=== PATIENT | male | born 1985 | race Caucasian/White ===

== ENCOUNTER 2021-05-17 18:51 | Emergency (ER) | payer SELFPAY ==
[2021-05-17 19:00] VITALS: BP 135/79; PULSE 88; RESP 16; TEMP 37.1; O2SAT 98; BMI 30.7
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
[2021-05-17 19:33] LABS: Microscopic, Urine URINE MICROSCOPIC (MICROSCOPIC)
[2021-05-17 19:36] LABS: Basophils # 0.1 K/mm3 (0-0.2); Basophils % 1.2 % (0.1-2.0); Eosinophils # 0.3 K/mm3 (0.0-0.4); Eosinophils % 3.6 % (0.1-12.0); Hematocrit 44.2 % (42.0-52.0); Hemoglobin 14.6 g/dL (14.1-18.0); Lymphocytes # 2.5 K/mm3 (0.7-4.5); Lymphocytes % 33.8 % (10-50); Mean Corpuscular HGB Conc 33.1 g/dL (31.8-35.4); Mean Corpuscular Volume 96.9 fl (80-94); Mean Platelet Volume 8.8 fl (7.4-10.4); Monocytes # 0.4 K/mm3 (0.1-1.0); Monocytes % 5.1 % (1.7-9.3); Neutrophils # 4.1 K/mm3 (1.8-7.8); Neutrophils % 56.3 % (37.0-80.0); Platelet Count 295 K/mm3 (142-424); Red Blood Count 4.57 M/mm3 (4.60-6.20); White Blood Count 7.3 K/mm3 (4.8-10.8)
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
[2021-05-17 19:46] LABS: Alanine Aminotransferase 16 U/L (12-78); Albumin Level 4.4 g/dl (3.5-5.0); Albumin/Globulin Ratio 1.5 (1.1-1.8); Alkaline Phosphatase 74 U/L (38-126); Anion Gap 5.6 mEq/L (5-15); Aspartate Amino Transferase 34 U/L (17-59); Bilirubin,Total 0.5 mg/dl (0.2-1.3); Blood Urea Nitrogen 9 mg/dl (9-20); Carbon Dioxide 33 mmol/L (22.0-30.0); Chloride 101 mmol/L (98-107); Creatinine Clearance Estimated 206 mL/min (50-200); Estimated Glomerular Filt Rate 128 ml/min (>60); GFR (African American) 154 ML/MIN (>60); Glucose 96 mg/dl (74-100); Lipase 38 U/L (23-300); Potassium 3.6 mmoL/L (3.5-5.1); Sodium 136 mmol/L (136-145); Total Protein,Serum 7.4 g/dl (6.3-8.2)
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
[2021-05-17 19:50] LABS: Appearance,Urine CLEAR (Clear); Bilirubin,Urine Negative (Negative); Blood, Urine Negative (Negative); Color,Urine YELLOW (Yellow); Glucose,Urine (UA) Negative (Negative); Ketones,Urine Negative (Negative); Leukocyte Esterase,Urine Negative (Negative); Nitrate,Urine Negative (Negative); PH,Urine 6.5 (5.0-8.5); Protein,Urine Negative (Negative); Specific Gravity, Urine 1.025 (1.005-1.030); Urobilinogen,Urine 0.2 EU/dl (0.2)
[2021-05-17 20:22] LABS: Bacteria,Urine Trace /lpf
[2021-05-17 20:36] VITALS: BP 145/85; PULSE 75; RESP 20; TEMP 36.6; O2SAT 98
== END 2021-05-17 20:42 | disposition home or self-care (01) ==
PROVIDERS: Emergency Provider Emergency Medicine; PCP Nurse Practitioner Family
DX: S13.4XXA Sprain of ligaments of cervical spine, initial encounter (principal); V47.0XXA Car driver injured in collision with fixed or stationary object in nontraffic accident, initial encounter; Y92.488 Other paved roadways as the place of occurrence of the external cause
CPT/HCPCS: 70450; 70486; 72125; 74177; 80053; 81001; 83690; 85025; 96365; 96375; 99282; J2405; Q9967

== ENCOUNTER 2023-07-30 15:13 | Inpatient (IN) | payer BC, SELFPAY ==
[2023-07-30] VITALS (7 sets, daily range): BP systolic 100–132; BP diastolic 57–73; PULSE 75–97; RESP 16–21; TEMP 36.6–36.8; O2SAT 91–96; BMI 31.4; BMI 35.9
--- NOTE | 2023-07-30 15:52 | ED_ITS ---
Discharge Plan Prescriptions Prescriptions: No Action buprenorphine-naloxone 8-2 mg film See Rx Instructions .ROUTE .COMPLEX Rx Instructions: see rx Referrals Follow up/Referrals: Nilsa Cordero [Primary Care Provider] - See instructions Clinical Impressions Clinical Impression: Hypoxia, Chest pain Discharge ED Provider: Marty Medel [facility] HPI General Stated complaint: oxygen is low, been exposed to Covid Time Seen by Provider: 07/30/23 15:52 History of Present Illness Provider Complaint: His states that the patient has had right sided chest pain, cough, and low o2 sat at home for the past several days. He has a history of substance abuse. He states that he has not had any drugs for the past 3 days. He has been exposed to covid-19 in his home by his having it. Related Data Home Medications Medication Instructions Recorded Confirmed buprenorphine 8 mg-naloxone 2 mg See Rx Instructions .Route .COMPLEX 07/30/23 07/30/23 sublingual film Allergies Allergy/AdvReac Type Severity Reaction Status Date / Time No Known Allergies Allergy Verified 07/30/23 16:03 [facility] Disclaimer: The information contained in this section may have been updated after the patient was seen, as this information can be updated by other users. Social History Smoking Status: Former smoker alcohol intake: former current occupational status: unemployed Travel in the last 8 weeks: None ROS Obtained: Yes All systems reviewed & no additional complaints except as documented Constitutional Constitutional: Denies chills and Denies fever(s) Eyes Eyes: Denies eye discharge ENT Ears, Nose, Mouth, and Throat: Reports as per HPI Cardiovascular Cardiovascular: Reports chest pain Respiratory Respiratory: Reports shortness of breath, Reports chest congestion, Reports cough and Reports stridor Gastrointestinal Gastrointestingal: Denies nausea or vomiting Musculoskeletal Musculoskeletal: Reports system reviewed and no additional complaints, except as documented and Denies arthralgias Integumentary/Breasts Skin/Breast: Denies rash Neurologic Neurologic: Denies paresthesias Physical Exam General General appearance: appears intoxicated Head Head exam: atraumatic, normocephalic and normal inspection Eye Eye exam: Present normal appearance, PERRL and EOMI ENT ENT exam: Present normal exam, normal oropharynx, mucous membranes moist, TM's normal bilaterally and normal external ear exam Neck Neck exam: Present normal inspection, full ROM and trachea midline; Absent meningismus or lymphadenopathy Chest Chest inspection: Present normal inspection and symmetric chest wall rise; Absent tenderness Respiratory Respiratory exam: Present normal lung sounds bilaterally and wheezes; Absent respiratory distress Cardiovascular Cardiovascular exam: Present regular rate and normal rhythm; Absent JVD Abdominal Exam Abdominal exam: Present soft and normal bowel sounds; Absent distention, tenderness or guarding Extremities Exam Extremities exam: Present normal inspection, full ROM and normal capillary refill; Absent calf tenderness Back Exam Back exam: Present normal inspection; Absent tenderness Neurological Exam Neurological exam: Present alert and oriented X3 Psychiatric Psychiatric exam: Present normal affect and normal mood Skin Skin exam: Present warm, dry, intact and normal color Lymphatic Lymphatic Findings: no adenopathy Medical Decision Making Medical Records Medical records reviewed: No I reviewed the patient's medical records. Christiano Inquiry Pt receiving controlled substance: No Medical Decision Narrative: He was transferred to the ER due to his low oxygen saturation, right sided chest pain, and altered mental status despite claims of not having any intoxicating substance in the past 3 days.
--- NOTE | 2023-07-30 15:56 | XR_ITS ---
FINAL REPORT CLINICAL HISTORY: pain FINDINGS: TWO-VIEW CHEST The heart size is normal. The mediastinum is normal. There are bibasilar pulmonary opacities consistent with pneumonia, right greater than left. There is no pneumothorax. IMPRESSION: Bilateral pneumonia, right greater than left. Reviewed, Interpreted and Dictated by Wilmer Dickson III, MD Transcribed by Angeles Askew Authenticated and [facility]
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
[2023-07-30 16:11] LABS: UTC Strep Screen (Rapid) Negative (Negative)
[2023-07-30 16:12] LABS: UTC Influenza A Antigen Negative (Negative); UTC Influenza B Antigen Negative (Negative)
--- NOTE | 2023-07-30 16:12 | ECG_ITS ---
APPROVED REPORT Exam: Resting ECG HR:92 bpm ECG Measurements Heart Rate 92 AXES WY 145 P 58 QRSd 98 QRS 73 QT 342 T 43 QTc 392 Conclusion SINUS RHYTHM NORMAL ECG Electronically signed by : SHAHNAZ HERNANDEZ, 07/30/2023 20:35:20
--- NOTE | 2023-07-30 16:15 | PC.NURSE ---
Dr. Bowling at [facility] for pt eval
--- NOTE | 2023-07-30 16:15 | ED_ITS ---
Discharge Plan Disposition Patient Disposition: Admitted Clinical Impressions Clinical Impression: Sepsis due to pneumonia, Acute hypoxic respiratory failure, Polysubstance abuse Discharge ED Provider: Cyn Bowling General Adult HPI General Chief complaint: Shortness of Breath/Dyspnea Stated complaint: oxygen is low, been exposed to Covid Time Seen by Provider: 07/30/23 15:52 Mode of Arrival: Ambulatory Source of Information: Patient Limitations: No Limitations Description of Symptoms (Recalled from ER Triage Doc. by RN): Pt's symptoms are shortness of breath, blood when he blows his nose, GALLOWAY, fever, and pain in chest left side. He has been exposed to covid and flu. History of Present Illness HPI narrative: This patient is a 38-year-old male with a history of IV drug use presenting with concern for several days of shortness of breath, cough, congestion, bloody nasal discharge, and hemoptysis. He notes that he has had full COVID and flu exposure, so he thought maybe he had an upper respiratory infection. He also complains that he is having pain on the right side of his chest, which he thinks is from coughing and pulling a muscle. He notes he has had fevers and chills as well as left lower extremity edema as well. He denies any abdominal pain, nausea, vomiting, changes in bowel movements, rashes, lesions, or other concerns. He denies any history of blood clots or clotting disorders. He also denies any history of endocarditis. Patient initially went to [facility], and I received report from the [facility] provider Marty who advised that the patient presented with an O2 saturation of 85% on room air. Given this, he sent him over for further evaluation. Related Data Home Medications Medication Instructions Recorded Confirmed buprenorphine 8 mg-naloxone 2 mg See Rx Instructions .Route .COMPLEX 07/30/23 07/30/23 sublingual film Allergies Allergy/AdvReac Type Severity Reaction Status Date / Time No Known Allergies Allergy Verified 07/30/23 16:03 [facility] Disclaimer: The information contained in this section may have been updated after the patient was seen, as this information can be updated by other users. Social History Smoking Status: Former smoker alcohol intake: former current occupational status: unemployed Travel in the last 8 weeks: None ROS Obtained: Yes All systems reviewed & no additional complaints except as documented Physical Exam General General appearance: alert, in no apparent distress and obese Comment: Nontoxic-appearing Head Head exam: atraumatic and normocephalic Eye Eye exam: Present normal appearance, PERRL, EOMI and miosis ENT ENT exam: Present normal exam, normal oropharynx, mucous membranes moist and normal external ear exam Neck Neck exam: Present normal inspection, full ROM and trachea midline; Absent tenderness Chest Chest inspection: Present normal inspection and symmetric chest wall rise; Absent tenderness Respiratory Respiratory exam: Present other (Rhonchi diminished breath sounds in the right lower lung base. Hypoxic requiring 3 L nasal cannula to maintain an oxygen saturation above 90%.); Absent respiratory distress, wheezes, stridor or accessory muscle use Cardiovascular Cardiovascular exam: Present normal rhythm and tachycardia Abdominal Exam Abdominal exam: Present soft; Absent distention, tenderness or guarding Extremities Exam Extremities exam: Present full ROM, normal capillary refill and edema (Bilateral lower extremity edema, left greater than right); Absent tenderness Back Exam Back exam: Present normal inspection and full ROM; Absent tenderness Neurological Exam Neurological exam: Present alert, oriented X3, CN II-XII intact and normal gait; Absent motor sensory deficit Psychiatric Psychiatric exam: Present normal affect and normal mood Skin Skin exam: Present warm, dry and other (No obvious rashes or lesions, such as [place] spots, osler nodes, or splinter hemorrhages.) Medical Decision Making Medical Records Medical records reviewed: Yes I reviewed the patient's medical records. Christiano Inquiry Pt receiving controlled substance: No Vital Signs: 07/30/23 15:45 07/30/23 16:11 07/30/23 19:00 Temperature 98.2 F 98.1 F Temperature Source Oral Oral Pulse Rate 86 Pulse Rate [Right Radial] 97 H 94 H Respiratory Rate 18 21 Blood Pressure 107/57 L Blood Pressure [Right Arm] 100/60 L 115/67 Blood Pressure Mean 67 Blood Pressure Mean [Right Arm] 73 83 Blood Pressure Source [Right Arm] Automatic Cuff Automatic Cuff Blood Pressure Position [Right Arm] Sitting Sitting 02 Sat by Pulse Oximetry 91 L 93 L 96 Oxygen Delivery Method Nasal Cannula Nasal Cannula Oxygen Flow Rate (LPM) 3 3 3 07/30/23 19:17 Temperature 98.1 F Temperature Source Oral Pulse Rate 86 Pulse Rate [Right Radial] Respiratory Rate 21 Blood Pressure 107/57 L Blood Pressure [Right Arm] Blood Pressure Mean Blood Pressure Mean [Right Arm] Blood Pressure Source [Right Arm] Blood Pressure Position [Right Arm] 02 Sat by Pulse Oximetry Oxygen Delivery Method Nasal Cannula Oxygen Flow Rate (LPM) 3 Lab Data Lab results reviewed: Yes I reviewed the patient's lab results. Lab Results 07/30/23 16:10: Influenza Type A Ag Negative, Influenza Type B Ag Negative, Strep Scn Rapid Clinic Negative 07/30/23 16:30: WBC 16.2 H, RBC 3.54 L, Hgb 11.5 L, Hct 35.3 L, MCV 99.7 H, MCH 32.5 H, MCHC 32.6, RDW 12.6, Plt Count 314, MPV 8.4, Neut % (Auto) 82.6 H, Lymph % (Auto) 13.6, Crisp % (Auto) 2.8, Eos % (Auto) 0.4, Baso % (Auto) 0.5, Neut # (Auto) 13.4 H, Lymph # (Auto) 2.2, Crisp # (Auto) 0.5, Eos # (Auto) 0.1, Baso # (Auto) 0.1, Total Counted 100, Neutrophils % (Manual) 81 H, Lymphocytes % (Manual) 18, Monocytes % (Manual) 1 L, Platelet Estimate Normal, Stomatocytes 1+, ESR > 140 H, PT 11.4, INR 1.06, APTT 33.3 H, Sodium 134 L, Potassium 3.4 L, Chloride 96 L, Carbon Dioxide 37 H, Anion Gap 4.4 L, BUN 9, Creatinine 1.10, Estimated Creat Clear 135, Estimated GFR 75, Est GFR ( Amer) 91, Glucose 119 H, Calcium 8.2 L, Total Bilirubin 0.6, AST 77 H, ALT 23, Alkaline Phosphatase 110, Troponin I 0.03, C-Reactive Protein 277.8 H, NT-Pro-B Natriuret Pep 788 H, Total Protein 6.9, Albumin 3.4 L, Globulin 3.5 H, Albumin/Globulin Ratio 1.0 L 07/30/23 16:41: VBG pH 7.35, VBG pCO2 59.3 H, VBG pO2 86.4 H, VBG HCO3 31.6 H, V BG Total CO2 33.5 H, VBG O2 Saturation 96.8 H, VBG Base Excess 5.9 H, VBG Lactic Acid 1.0 07/30/23 17:30: Urine Color [place], Urine Appearance Clear, Urine pH 6.0, Ur Specific [place] 1.020, Urine Protein 2+, Urine Glucose (UA) Negative, Urine Ketones Negative, Urine Blood Negative, Urine Nitrate Negative, Urine Bilirubin 1+ A, Urine Urobilinogen 1.0, Ur Leukocyte Esterase Negative, Urine RBC None, Urine WBC None, Ur Squamous Epith Cells Occasional, Urine Bacteria None, Urine Opiates Screen Negative, Urine Methadone Screen Negative, Ur Barbituates Screen Negative, Ur Phencyclidine Scrn Negative, Ur Amphetamines Screen Negative, U Benzodiazepines Scrn Positive H, Urine Cocaine Screen Positive H, U Marijuana (THC) Screen Negative 07/30/23 16:30 07/30/23 16:30 Orders (Tests/Meds): ED MEDICATIONS Generic Name Dose Route Start Last Admin Trade Name Freq PRN Reason Stop Dose Admin Buprenorphine/Naloxone 1 each 07/30/23 21:00 Buprenorphine/Naloxone 8mg/2mg Odt SL 08/29/23 20:59 BID [facility] Enoxaparin Sodium 40 mg 07/31/23 09:00 Enoxaparin 40mg/0.4ml Syringe SQ 08/30/23 08:59 DAILY GOSIA Vancomycin HCl 2,250 mg/ 250 mls @ 125 mls/hr 07/30/23 18:00 Sodium Chloride IV 07/30/23 19:59 ONCE ONE Piperacillin Sod/Tazobactam 50 mls @ 100 mls/hr 07/30/23 23:30 Sod 3.375 gm/ Sodium Chloride IV 08/09/23 23:29 Q6H [facility] Miscellaneous 1 each 07/30/23 18:00 Vancomycin Consult Request NOTAPPLIC 08/29/23 17:59 CONSULT PHARMACY [facility] Nicotine 21 mg 07/30/23 18:12 Nicotine 21mg/24hr Patch TD 08/29/23 18:11 DAILYP PRN Nicotine Cravings Discontinued Medications Generic Name Dose Route Start Last Admin Trade Name Freq PRN Reason Stop Dose Admin Albuterol/Ipratropium 3 ml 07/30/23 15:56 07/30/23 16:10 Ipratropium/Albuterol 3 Ml Neb IH 07/30/23 15:57 Not Given ONCE ONE Lactated Ringer's 1,000 mls @ 999 mls/hr 07/30/23 16:23 07/30/23 16:38 Lactated Ringer's 1000 Ml Bag IV 07/30/23 17:23 999 mls/hr .Q1H1M ONE Administration Lactated Ringer's 1,000 mls @ 999 mls/hr 07/30/23 17:08 Lactated Ringer's 1000 Ml Bag IV 07/30/23 18:08 .Q1H1M ONE Piperacillin Sod/Tazobactam 50 mls @ 100 mls/hr 07/30/23 17:48 07/30/23 17:55 Sod 3.375 gm/ Sodium Chloride IV 07/30/23 18:17 100 mls/hr ONCE ONE Administration Iopamidol 75 ml 07/30/23 17:28 07/30/23 17:30 Iopamidol-370 (76%);100ml Bottle IV 07/30/23 17:29 75 ml ONCE ONE Administration Nicotine 21 mg 07/30/23 17:47 07/30/23 17:55 Nicotine 21mg/24hr Patch TD 07/30/23 17:48 21 mg ONCE ONE Administration Sodium Chloride 40 ml 07/30/23 17:28 07/30/23 17:30 0.9 % Sodium Chloride 50 Ml Vial IV 07/30/23 17:29 40 ml ONCE ONE Administration Sodium Chloride 10 ml 07/30/23 17:28 07/30/23 17:30 Sodium Chloride 0.9% 10ml Syr (Rad Only) IV 07/30/23 17:29 10 ml ONCE ONE Administration ORDERS Category Date Time Status CT angio chest PE protocol Stat Cat Scan 07/30/23 16:07 Completed Pulmonology Consult [Consult to Pulmonology] [CONS] Cons 07/30/23 18:12 Active Routine Chest XR 2 view (NOT portable) [XR chest 2V] Stat Exams 07/30/23 15:56 Completed POCUS Point of Care (ER Only) Stat Exams 07/30/23 16:08 Completed Activated Partial Thrombo Time Stat Lab 07/30/23 16:30 Completed Brain Natriuretic Peptide Stat Lab 07/30/23 16:30 Completed CRP [C-Reactive Protein] Stat Lab 07/30/23 16:30 Completed Complete Blood Count Auto Diff AMLAB Lab 07/31/23 06:00 Ordered Complete Blood Count Auto Diff Stat Lab 07/30/23 16:30 Completed Comprehensive Metabolic Panel AMLAB Lab 07/31/23 06:00 Ordered Comprehensive Metabolic Panel Stat Lab 07/30/23 16:30 Completed Covid-19 Nasal PCR ([facility]) Routine Lab 07/30/23 16:24 Received Drug Screen,Urine Stat Lab 07/30/23 17:30 Completed Erythrocyte Sedimentation Rate Stat Lab 07/30/23 16:30 Completed Magnesium AMLAB Lab 07/31/23 06:00 Ordered Prothrombin Time INR Stat Lab 07/30/23 16:30 Completed Troponin I Q3H Lab 07/30/23 19:15 Ordered Troponin I Q3H Lab 07/30/23 22:15 Ordered Troponin I Stat Lab 07/30/23 16:30 Completed Urinalysis and Microscopic Stat Lab 07/30/23 17:30 Completed Blood Culture Stat Micro 07/30/23 16:30 Received Strep Screen Confirmation Stat Micro 07/30/23 16:10 Received Venous Blood Gas Stat RT 07/30/23 16:41 Completed ECG Data Tracing #1: I reviewed this ECG and interpreted as documented below: Sinus rhythm with a ventricular rate of [address] elevations concerning for ischemia. Normal axis and intervals. ECG initial impression date: 07/30/23 ECG initial impression time: 16:13 Medical Decision Narrative: In summary, this patient is a 38-year-old male presenting to the Emergency Department for evaluation of cough, congestion, chest pain, shortness of breath, hemoptysis, and low oxygen reading at [facility]. Differential diagnoses considered include but are not limited to PE, bronchitis, pneumonia, respiratory failure, endocarditis, ACS. Ruling out the most morbid conditions drove assessment. It should be noted patient's history includes IV drug use which is not at goal therapy. This complicates all aspects of care by increasing patient's risk for morbidity. On exam, the patient is nontoxic-appearing. He is slightly tachycardic and is hypoxic requiring supplemental oxygen with 3 L nasal cannula. Workup included CBC, CMP, troponin, ESR, CRP, VBG, lactic acid, BNP, PT, PTT, viral swab, blood cultures, CT PE protocol, and EKG. EKG is reassuring. I independently interpreted chest x-ray obtained at [facility] prior to transfer of the patient over to us and noted that he has dense consolidation in his right lower lobe. I independently interpreted CT scan prior to the radiologist read and noted bilateral multifocal pneumonia, worse on the right. No obvious large PE. Please see their read for final interpretation. Labs were obtained that demonstrated leukocytosis, elevated inflammatory markers, and CO2 retention. On multiple subsequent reassessments, the patient is resting comfortably with reassuring vital signs on cardiac telemetry. He does not frequently, likely due to the fact that he is under the influence of substances. He did admit that he took benzodiazepines today. UDS is positive for benzodiazepines as well as cocaine. He maintains his oxygen saturation without difficulty and is arousable to voice. He was given a sepsis equivalent bolus of IV fluids at 2 L of IV fluids based on his ideal body weight. He was given IV vancomycin and Zosyn given sepsis in the setting of pneumonia. At this time, I feel he would benefit from admission for continued monitoring. He is very high risk with his history of substance use and I am highly concerned for sepsis. Bedside ultrasound was obtained that did not demonstrate any definitive vegetations on his cardiac valves, however cannot exclude endocarditis at this time. I had an interactive discussion with the hospitalist, Dr. Basurto, who admitted the patient for further evaluation and management. Procedures Limited Ultrasound Findings:: Limited cardiac ultrasound Indication: -Chest pain -Shortness of breath Identified cardiac views: [-Cardiac parasternal long axis] [-Cardiac parasternal short axis] [-Cardiac apical four-chamber] [-Cardiac subxiphoid] Findings: -Cardiac activity present -Gross wall motion normal -Pericardial effusion absent -Right heart strain absent Impression: -[From above] Images [were saved] to permanent archive The study [was] technically adequate CPT: 49137 This study was performed by me, and I personally interpreted all images/videos. Based on my clinical judgement, these images were [adequate] and [did not] necessitate further imaging. Critical Care Critical Care Time Critical Care Time: No
--- NOTE | 2023-07-30 16:15 | [facility].EDGENADL ---
Discharge Plan Prescriptions Prescriptions: No Action buprenorphine-naloxone 8-2 mg film See Rx Instructions .ROUTE .COMPLEX Rx Instructions: see rx Referrals Follow up/Referrals: Nilsa Cordero [Primary Care Provider] - See instructions Discharge ED Provider: Marty Medel General Adult HPI General Stated complaint: oxygen is low, been exposed to Covid Time Seen by Provider: 07/30/23 15:52 Mode of Arrival: Ambulatory Source of Information: Patient Limitations: No Limitations Description of Symptoms (Recalled from ER Triage Doc. by RN): Pt's symptoms are shortness of breath, blood when he blows his nose, GALLOWAY, fever, and pain in chest left side. He has been exposed to covid and flu. Related Data Home Medications Medication Instructions Recorded Confirmed buprenorphine 8 mg-naloxone 2 mg See Rx Instructions .Route .COMPLEX 07/30/23 07/30/23 sublingual film Allergies Allergy/AdvReac Type Severity Reaction Status Date / Time No Known Allergies Allergy Verified 07/30/23 16:03 [facility] Disclaimer: The information contained in this section may have been updated after the patient was seen, as this information can be updated by other users. Medical Decision Making Vital Signs: 07/30/23 15:45 Temperature 98.2 F Temperature Source Oral Pulse Rate [Right Radial] 97 H Respiratory Rate 18 Blood Pressure [Right Arm] 100/60 L Blood Pressure Mean [Right Arm] 73 Blood Pressure Source [Right Arm] Automatic Cuff Blood Pressure Position [Right Arm] Sitting 02 Sat by Pulse Oximetry 91 L Oxygen Delivery Method Nasal Cannula Oxygen Flow Rate (LPM) 3 Lab Data Lab Results 07/30/23 16:10: Influenza Type A Ag Negative, Influenza Type B Ag Negative, Strep Scn Rapid Clinic Negative Orders (Tests/Meds): ED MEDICATIONS Discontinued Medications Generic Name Dose Route Start Last Admin Trade Name Freq PRN Reason Stop Dose Admin Albuterol/Ipratropium 3 ml 07/30/23 15:56 07/30/23 16:10 Ipratropium/Albuterol 3 Ml Neb IH 07/30/23 15:57 Not Given ONCE ONE ORDERS Category Date Time Status CT angio chest PE protocol Stat Cat Scan 07/30/23 16:07 Ordered Chest XR 2 view (NOT portable) [XR chest 2V] Stat Exams 07/30/23 15:56 Taken POCUS Point of Care (ER Only) Stat Exams 07/30/23 16:08 Ordered Activated Partial Thrombo Time Stat Lab 07/30/23 16:07 Ordered Brain Natriuretic Peptide Stat Lab 07/30/23 16:07 Ordered Complete Blood Count Auto Diff Stat Lab 07/30/23 16:07 Ordered Comprehensive Metabolic Panel Stat Lab 07/30/23 16:07 Ordered Covid-19 Nasal PCR ([facility]) Routine Lab 07/30/23 16:07 Ordered Drug Screen,Urine Stat Lab 07/30/23 16:08 Ordered Prothrombin Time INR Stat Lab 07/30/23 16:07 Ordered Troponin I Q3H Lab 07/30/23 19:15 Ordered Troponin I Q3H Lab 07/30/23 22:15 Ordered Troponin I Stat Lab 07/30/23 16:07 Ordered Urinalysis and Microscopic Stat Lab 07/30/23 16:08 Ordered Blood Culture Stat Micro 07/30/23 16:13 Ordered Strep Screen Confirmation Stat Micro 07/30/23 16:10 Received Venous Blood Gas Stat RT 07/30/23 16:07 Ordered
[2023-07-30] MEDS: LACTATED RINGERS 1000ML 1,000 ML 999 ML IV ×2 (16:38→20:47)
--- NOTE | 2023-07-30 16:41 | PC.NURSE ---
respiratory (NAIDA) aware of green top in lab for vbg order
--- NOTE | 2023-07-30 16:42 | PC.NURSE ---
lab called for 2 nd set of blood culture draw due to difficult stick
[2023-07-30 16:46] LABS: VBG Base Excess 5.9 mmol/L (-2.4-2.3); VBG HCO3 31.6 mmol/L (23-30); VBG Oxygen Saturation 96.8 % (50-70); VBG PCO2 59.3 mmol/L (35-51); VBG PH 7.35 mmol/L (7.31-7.41); VBG PO2 86.4 mmol/L (28-40); VBG Total CO2 33.5 mmol/L (23-27)
--- NOTE | 2023-07-30 16:54 | PC.NURSE ---
lab at collecting blood
[2023-07-30 16:58] LABS: Basophils # 0.1 K/mm3 (0-0.2); Basophils % 0.5 % (0.1-2.0); Eosinophils # 0.1 K/mm3 (0.0-0.4); Eosinophils % 0.4 % (0.1-12.0); Hematocrit 35.3 % (42.0-52.0); Hemoglobin 11.5 g/dL (14.1-18.0); Lymphocytes # 2.2 K/mm3 (0.7-4.5); Lymphocytes % 13.6 % (10-50); Mean Corpuscular HGB Conc 32.6 g/dL (31.8-35.4); Mean Corpuscular Hemoglobin 32.5 pg (27.0-31.2); Mean Corpuscular Volume 99.7 fl (80-94); Mean Platelet Volume 8.4 fl (7.4-10.4); Monocytes # 0.5 K/mm3 (0.1-1.0); Monocytes % 2.8 % (1.7-9.3); Neutrophils # 13.4 K/mm3 (1.8-7.8); Neutrophils % 82.6 % (37.0-80.0); Platelet Count 314 K/mm3 (142-424); Red Blood Count 3.54 M/mm3 (4.60-6.20); Red Cell Distribution Width 12.6 % (11.5-17.5); White Blood Count 16.2 K/mm3 (4.8-10.8)
[2023-07-30 16:59] LABS: Chloride 96 mmol/L (98-107); Potassium 3.4 mmoL/L (3.5-5.1); Sodium 134 mmol/L (136-145)
[2023-07-30 17:01] LABS: Blood Urea Nitrogen 9 mg/dl (9-20); Creatinine Clearance Estimated 135 mL/min (50-200); Estimated Glomerular Filt Rate 75 ml/min (>60); GFR (African American) 91 ML/MIN (>60); MANUAL DIFFERENTIAL MANUAL DIFFERENTIAL (MANUAL DIFF)
[2023-07-30 17:02] LABS: Alanine Aminotransferase 23 U/L (12-78); Albumin Level 3.4 g/dl (3.5-5.0); Alkaline Phosphatase 110 U/L (38-126); Anion Gap 4.4 mEq/L (5-15); Aspartate Amino Transferase 77 U/L (17-59); Bilirubin,Total 0.6 mg/dl (0.2-1.3); Calcium 8.2 mg/dl (8.4-10.2); Carbon Dioxide 37 mmol/L (22.0-30.0); Globulin 3.5 g/dL (1.3-3.2); Glucose 119 mg/dl (74-100); Total Protein,Serum 6.9 g/dl (6.3-8.2)
[2023-07-30 17:06] LABS: Activated Partial Thrombo Time 33.3 seconds (22.8-30.6); INR 1.06 (0.9-1.1); Prothrombin Time 11.4 seconds (10.1-12.5)
[2023-07-30 17:10] LABS: C-Reactive Protein 277.8 mg/L (0-4)
[2023-07-30 17:11] LABS: NT Pro Brain Natriuretic Pep. 788 pg/mL (0-125)
[2023-07-30 17:13] LABS: Troponin I 0.03 ng/ml (0.00-0.034)
[2023-07-30 17:29] LABS: Lymphocytes % 18 % (10-50); Monocytes % 1 % (2-9); Neutrophils % 81 % (42-76); Platelet Estimate Normal; Stomatocytes 1+; Total Cells Counted 100
[2023-07-30 17:30] LABS: Erythrocyte Sedimentation Rate > 140 mm/hr (0-15)
[2023-07-30] MEDS: SODIUM CHLORIDE 0.9% 10ML SYR (RAD ONLY) 10 ML IV (17:30)
[2023-07-30] MEDS: IOPAMIDOL-370 (76%);100ML BOTTLE 75 ML IV (17:30)
[2023-07-30] MEDS: 0.9 % SODIUM CHLORIDE 50 ML VIAL 40 ML IV (17:30)
--- NOTE | 2023-07-30 17:31 | PC.NURSE ---
Pt returned to room from RAD
[2023-07-30 17:44] LABS: Microscopic, Urine URINE MICROSCOPIC (MICROSCOPIC)
[2023-07-30 17:53] LABS: Appearance,Urine CLEAR (Clear); Blood, Urine Negative (Negative); Color,Urine ORANGE (Yellow); Glucose,Urine (UA) Negative (Negative); Ketones,Urine Negative (Negative); Leukocyte Esterase,Urine Negative (Negative); Nitrate,Urine Negative (Negative); Protein,Urine 2+ (Negative)
[2023-07-30] MEDS: PIPERACILLIN/TAZO 3.375 GM in 0.9 % SODIUM CHLORIDE 50 ML IV (17:55)
[2023-07-30] MEDS: NICOTINE 21MG/24HR PATCH 21 MG TD (17:55)
[2023-07-30 18:10] LABS: Barbiturates Screen,Urine Negative ng/ml (<200); Benzodiazepines Screen,Urine Positive ng/ml (<200)
[2023-07-30 18:11] LABS: Amphetamine/Metha Screen,Urine Negative ng/ml (<1000)
[2023-07-30 18:12] LABS: Bilirubin,Urine 1+ (Negative); Cocaine Screen,Urine Positive ng/ml (<300); Methadone Screen,Urine Negative ng/ml (<300)
[2023-07-30 18:13] LABS: Cannabinoid Screen,Urine Negative ng/ml (<50)
[2023-07-30 18:14] LABS: Opiate Screen,Urine Negative ng/ml (<300); Phencyclidine Screen,Urine Negative ng/ml (<25)
--- NOTE | 2023-07-30 18:14 | PC.NURSE ---
House notified of need for bed.
[2023-07-30 18:23] LABS: Squamous Epithelial Cell,Urine Occasional #/hpf (0-5)
--- NOTE | 2023-07-30 18:33 | PC.NURSE ---
Report called to [facility] aT
--- NOTE | 2023-07-30 19:20 | PC.NURSE ---
Patient arrived to floor via stretcher from ED at 19:17.
--- NOTE | 2023-07-30 19:45 | EXP.HP ---
History of Present Illness *Admission Date: 07/30/23 *Reason for visit:: SOB and CP *History of present illness: This is a 38-year-old male with no apparent no medical history, other than IV drug use, presented to ED with concern for several days of shortness of breath, cough, congestion, bloody nasal discharge, and hemoptysis. Patient stated went to a music concert last Saturday and had something hard for fun he snorted it. he does not know what it was. He also notes that he has had full COVID and flu exposure, so he thought maybe he had an upper respiratory infection. He also complains that he is having pain on the right side of his chest, which he thinks is from coughing and pulling a muscle. He notes he has had fevers and chills as well as left lower extremity edema as well. He denies any abdominal pain, nausea, vomiting, changes in bowel movements, rashes, lesions, or other concerns. He denies any history of blood clots or clotting disorders. He also denies any history of endocarditis. Admitted for treatment and management [facility] Disclaimer: The information contained in this section may have been updated after the patient was seen, as this information can be updated by other users. Social History (Updated 07/31/23 @ 07:58 by Marty Basurto MD) Smoking Status: Former smoker alcohol intake: former substance use type: marijuana, crack/cocaine and IV drugs current occupational status: unemployed Travel in the last 8 weeks: None Review of Systems Review of Systems Review of systems:: pertinent systems reviewed and negative unless documented below *Neurologic Neurologic: Denies paresthesias Meds Home Medications and Allergies Home Medications Medication Instructions Recorded Confirmed Type buprenorphine 8 mg-naloxone 2 mg 1 film sublingual BID 07/30/23 07/31/23 History sublingual film New Prescriptions to Start Prescriptions: Allergies Allergy/AdvReac Type Severity Reaction Status Date / Time No Known Allergies Allergy Verified 07/30/23 16:03 Exam Data for Last 24 hours Vital signs and Labs for Last 24 Hours: Temp Pulse Resp BP Pulse Ox O2 Del Method O2 Flow Rate 98.1 F 86 21 107/57 L 96 Nasal Cannula 3 07/30/23 19:17 07/30/23 19:17 07/30/23 19:17 07/30/23 19:17 07/30/23 19:00 07/30/23 19:17 07/30/23 19:17 Laboratory Results - last 24 hr 07/30/23 16:10: Influenza Type A Ag Negative, Influenza Type B Ag Negative, Strep Scn Rapid Clinic Negative 07/30/23 16:30: WBC 16.2 H, RBC 3.54 L, Hgb 11.5 L, Hct 35.3 L, MCV 99.7 H, MCH 32.5 H, MCHC 32.6, RDW 12.6, Plt Count 314, MPV 8.4, Neut % (Auto) 82.6 H, Lymph % (Auto) 13.6, [place] % (Auto) 2.8, Eos % (Auto) 0.4, Baso % (Auto) 0.5, Neut # (Auto) 13.4 H, Lymph # (Auto) 2.2, [place] # (Auto) 0.5, Eos # (Auto) 0.1, Baso # (Auto) 0.1, Total Counted 100, Neutrophils % (Manual) 81 H, Lymphocytes % (Manual) 18, Monocytes % (Manual) 1 L, Platelet Estimate Normal, Stomatocytes 1+, ESR > 140 H, PT 11.4, INR 1.06, APTT 33.3 H, Sodium 134 L, Potassium 3.4 L, Chloride 96 L, Carbon Dioxide 37 H, Anion Gap 4.4 L, BUN 9, Creatinine 1.10, Estimated Creat Clear 135, Estimated GFR 75, Est GFR ( Amer) 91, Glucose 119 H, Calcium 8.2 L, Total Bilirubin 0.6, AST 77 H, ALT 23, Alkaline Phosphatase 110, Troponin I 0.03, C-Reactive Protein 277.8 H, NT-Pro-B Natriuret Pep 788 H, Total Protein 6.9, Albumin 3.4 L, Globulin 3.5 H, Albumin/Globulin Ratio 1.0 L 07/30/23 16:41: VBG pH 7.35, VBG pCO2 59.3 H, VBG pO2 86.4 H, VBG HCO3 31.6 H, VBG Total CO2 33.5 H, VBG O2 Saturation 96.8 H, VBG Base Excess 5.9 H, VBG Lactic Acid 1.0 07/30/23 17:30: Urine Color [place], Urine Appearance Clear, Urine pH 6.0, Ur Specific [place] 1.020, Urine Protein 2+, Urine Glucose (UA) Negative, Urine Ketones Negative, Urine Blood Negative, Urine Nitrate Negative, Urine Bilirubin 1+ A, Urine Urobilinogen 1.0, Ur Leukocyte Esterase Negative, Urine RBC None, Urine WBC None, Ur Squamous Epith Cells Occasional, Urine Bacteria None, Urine Opiates Screen Negative, Urine Methadone Screen Negative, Ur Barbituates Screen Negative, Ur Phencyclidine Scrn Negative, Ur Amphetamines Screen Negative, U Benzodiazepines Scrn Positive H, Urine Cocaine Screen Positive H, U Marijuana (THC) Screen Negative I & O for Last 24 hours: Intake & Output 07/27/23 07/28/23 07/29/23 07/30/23 23:59 23:59 23:59 23:59 Weight 113.398 kg Constitutional Constitutional: mild distress, cooperative and somnolent *Routine HEENT Exam Head: Present normocephalic and atraumatic Eye: Present EOMI, PERRL and normal accommodation ENT: Present mucous membranes dry *Routine Neck Exam Neck: Present supple, full ROM and trachea midline *Routine Respiratory Exam Respiratory: Present CTA bilaterally, crackles, diminished air movement and normal respiratory effort *Routine Cardiovascular Exam Cardiovascular: Present RRR, Normal S1, Normal S2 and tachycardia *Routine Abdominal Exam Abdominal: Present soft and normoactive bowel sounds; Absent tenderness, distended or mass *Routine Rectal Exam Rectal:: deferred *Routine Genitalia Exam Genitalia:: deferred *Routine Extremities Exam Extremities: Present full ROM and pulses intact; Absent cyanosis, clubbing or edema *Routine Skin Exam Skin: Present petechiae; Absent cyanosis, erythema or rash *Routine Neurological Exam Neurological: Present alert, oriented X3, moving all extremities and normal speech Routine Psychiatric Exam Psychiatric: Present good insight H&P: Result Imaging and Cardiology EKG: Status: image reviewed by me, Preliminary report and final report CT scan - chest: Status: image reviewed by me, Preliminary report and final report Chest x-ray: Status: image reviewed by me, Preliminary report and final report Assessment and Plan *Assessment and plan (1) Acute hypoxic respiratory failure: Status: Acute Category: Medical Code(s): J96.01 - Acute respiratory failure with hypoxia (2) Sepsis due to pneumonia: Status: Acute Category: Medical Code(s): J18.9 - Pneumonia, unspecified organism; A41.9 - Sepsis, unspecified organism (3) Drug-induced pneumonitis: Status: Acute Category: Medical Code(s): J98.4 - Other disorders of lung; T50.905A - Adverse effect of unspecified drugs, medicaments and biological substances, initial encounter (4) Polysubstance abuse: Status: Acute Category: Medical Code(s): F19.10 - Other psychoactive substance abuse, uncomplicated (5) Hypokalemia: Status: Acute Category: Medical Code(s): E87.6 - Hypokalemia (6) Elevated brain natriuretic peptide (BNP) level: Status: Acute Category: Medical Code(s): R79.89 - Other specified abnormal findings of blood chemistry Plan 38-year-old male with no apparent no medical history, other than IV drug use, presented to ED with concern for several days of shortness of breath, cough, congestion, bloody nasal discharge, and hemoptysis. Patient stated went to a music concert last Saturday and had something hard for fun he snorted it. on arrival patient presented hypoxic, tachycardic met sepsis criteria, went into fluid resuscitation. started on broad antibiotioc. CT of chest obtained. imaging reviewed. consistent with multifocal pneumonia. labs are remarkable for leukocytocys, electrolytes disturbances. elevated BNP. discussed with ED for admission. Plan as follow: -Sepsis with Acute hypoxic respiratory failure secondary to acquired pneumoania. to r/o pnemonitis secondary to drug aspiration. polysubstance abuse: Admit patient. start continuous monitoring for sepsis and organ dysfuntion pulmonology consult monitor for O2 sat. currently 3L NC. wean off \Decadron 10mg IV given. Continue with 6mg PO daily. May decrease dose as saturation improve started on vanco and zoxyn. Pending culture respiratory to assist with care. repeat labs in the morning. Watch for renal function Cont IV sepsis bolus. switch to maintenance after. expressed interest for detox program. CM/social services manager consult to assist with D/c plan -Hypokalemia: replace K+ PO. [facility]tes imabalances. cardiac monitoring BNP elevated: Obtain ECHO in the morning to rule out myocarditis. Lovenox for dvt ppx. On protonix Full code,. Plan discussed with patient and family at bedside. they agreed. Rounded on patient after nurse practitioner. Personally examined and interviewed patient. Agree with exam findings and care plan as documented.
[2023-07-30 20:15] LABS: Troponin I 0.02 ng/ml (0.00-0.034)
[2023-07-30] MEDS: VANCOMYCIN HCL 2,250 MG in 0.9 % SODIUM CHLORIDE 250 ML 125 MG IV (20:47)
[2023-07-30] MEDS: VANCOMYCIN CONSULT REQUEST 1 EACH NOTAPPLIC ×2 (20:48→21:49)
[2023-07-30] MEDS: DEXAMETHASONE 4MG/ML 1ML VIAL 8 MG IV (21:49)
[2023-07-30] MEDS: POTASSIUM CHLORIDE 20MEQ TAB 40 MEQ PO (21:49)
[2023-07-30] MEDS: PIPERCILLIN/TAZO 3.375 GM in 0.9 % SODIUM CHLORIDE 50 ML IV (23:12)
[2023-07-30 23:26] LABS: Troponin I 0.01 ng/ml (0.00-0.034)
[2023-07-31] VITALS: BP 108/57; PULSE 78; RESP 17; TEMP 36.6; O2SAT 96
--- NOTE | 2023-07-31 00:08 | PC.NURSE ---
RESPIRATORY NOTE PT IS ON 4L NC RA NOT ADVISED AT THIS TIME.
[2023-07-31 04:00] VITALS: BP 113/60; PULSE 80; PULSE 81; RESP 17; TEMP 36.7; O2SAT 95; BMI 33.3
[2023-07-31] MEDS: VANCOMYCIN HCL 1,000 MG in 0.9 % SODIUM CHLORIDE 250 ML 125 MG IV (04:04)
--- NOTE | 2023-07-31 04:58 | PC.NURSE ---
Since arriving from the ER that patient has been in and out of alertness. The patient is at times hard to arouse but would wake up with stimulation and yelling his name. When awake the patient knows his name and where he is at but at times forgets why he is here. Patient RR has remained above 15 and O2 has remained above 90 while asleep. with exertion the patient does drop substantially to the 70s and does take awhile for the patient to rebound. patient is currently on 4L NC. The highest he has been this shift 5LNC and titrated to keep patient above 90%. During admission patient and family stated that he took a Bar earlier in the day before coming in but has not taken anything else excepted his suboxone. Patient would not say the last time he use any other recreational drugs. Family has remained at bedside.
--- NOTE | 2023-07-31 07:16 | HMH.PHAINT1 ---
Pharmacy Intervention Comments: Home medication list verified via outside pharmacy and patient.
[2023-07-31 07:18] LABS: Basophils % 0.1 % (0.1-2.0); Hematocrit 37.9 % (42.0-52.0); Lymphocytes # 0.9 K/mm3 (0.7-4.5); Lymphocytes % 5.1 % (10-50); Mean Corpuscular HGB Conc 31.6 g/dL (31.8-35.4); Mean Corpuscular Hemoglobin 32.5 pg (27.0-31.2); Mean Corpuscular Volume 102.8 fl (80-94); Mean Platelet Volume 8.7 fl (7.4-10.4); Monocytes # 0.2 K/mm3 (0.1-1.0); Monocytes % 1.5 % (1.7-9.3); Neutrophils # 15.5 K/mm3 (1.8-7.8); Neutrophils % 93.3 % (37.0-80.0); Platelet Count 331 K/mm3 (142-424); Red Blood Count 3.68 M/mm3 (4.60-6.20); Red Cell Distribution Width 12.7 % (11.5-17.5); White Blood Count 16.6 K/mm3 (4.8-10.8)
[2023-07-31 07:20] LABS: MANUAL DIFFERENTIAL MANUAL DIFFERENTIAL (MANUAL DIFF)
--- NOTE | 2023-07-31 07:43 | EXP.PHA.CONS ---
Pharmacy Consult Date: 07/31/23 Time: 07:44 Referring provider: DR URIOSTEGUI Reason for Consult:: VANCOMYCIN DOSING CONSULT Allergies Allergy/AdvReac Type Severity Reaction Status Date / Time No Known Allergies Allergy Verified 07/30/23 16:03 Home Medications Medication Instructions Recorded Confirmed Type buprenorphine 8 mg-naloxone 2 mg 1 film sublingual BID 07/30/23 07/31/23 History sublingual film New Prescriptions to Start Prescriptions: Height: 1.78 m Weight: 105.778 kg Laboratory Results:: Laboratory Results - last 24 hr 07/30/23 16:10: Influenza Type A Ag Negative, Influenza Type B Ag Negative, Strep Scn Rapid Clinic Negative 07/30/23 16:30: WBC 16.2 H, RBC 3.54 L, Hgb 11.5 L, Hct 35.3 L, MCV 99.7 H, MCH 32.5 H, MCHC 32.6, RDW 12.6, Plt Count 314, MPV 8.4, Neut % (Auto) 82.6 H, Lymph % (Auto) 13.6, [place] % (Auto) 2.8, Eos % (Auto) 0.4, Baso % (Auto) 0.5, Neut # (Auto) 13.4 H, Lymph # (Auto) 2.2, [place] # (Auto) 0.5, Eos # (Auto) 0.1, Baso # (Auto) 0.1, Total Counted 100, Neutrophils % (Manual) 81 H, Lymphocytes % (Manual) 18, Monocytes % (Manual) 1 L, Platelet Estimate Normal, Stomatocytes 1+, ESR > 140 H, PT 11.4, INR 1.06, APTT 33.3 H, Sodium 134 L, Potassium 3.4 L, Chloride 96 L, Carbon Dioxide 37 H, Anion Gap 4.4 L, BUN 9, Creatinine 1.10, Estimated Creat Clear 135, Estimated GFR 75, Est GFR ( Amer) 91, Glucose 119 H, Calcium 8.2 L, Total Bilirubin 0.6, AST 77 H, ALT 23, Alkaline Phosphatase 110, Troponin I 0.03, C-Reactive Protein 277.8 H, NT-Pro-B Natriuret Pep 788 H, Total Protein 6.9, Albumin 3.4 L, Globulin 3.5 H, Albumin/Globulin Ratio 1.0 L 07/30/23 16:41: VBG pH 7.35, VBG pCO2 59.3 H, VBG pO2 86.4 H, VBG HCO3 31.6 H, VBG Total CO2 33.5 H, VBG O2 Saturation 96.8 H, VBG Base Excess 5.9 H, VBG Lactic Acid 1.0 07/30/23 17:30: Urine Color [place], Urine Appearance Clear, Urine pH 6.0, Ur Specific [place] 1.020, Urine Protein 2+, Urine Glucose (UA) Negative, Urine Ketones Negative, Urine Blood Negative, Urine Nitrate Negative, Urine Bilirubin 1+ A, Urine Urobilinogen 1.0, Ur Leukocyte Esterase Negative, Urine RBC None, Urine WBC None, Ur Squamous Epith Cells Occasional, Urine Bacteria None, Urine Opiates Screen Negative, Urine Methadone Screen Negative, Ur Barbituates Screen Negative, Ur Phencyclidine Scrn Negative, Ur Amphetamines Screen Negative, U Benzodiazepines Scrn Positive H, Urine Cocaine Screen Positive H, U Marijuana (THC) Screen Negative 07/30/23 19:10: Troponin I 0.02 07/30/23 22:40: Troponin I 0.01 07/31/23 06:50: WBC 16.6 H, RBC 3.68 L, Hgb 12.0 L, Hct 37.9 L, MCV 102.8 H, MCH 32.5 H, MCHC 31.6 L, RDW 12.7, Plt Count 331, MPV 8.7, Neut % (Auto) 93.3 H, Lymph % (Auto) 5.1 L, [place] % (Auto) 1.5 L, Eos % (Auto) 0.0 L, Baso % (Auto) 0.1, Neut # (Auto) 15.5 H, Lymph # (Auto) 0.9, [place] # (Auto) 0.2, Eos # (Auto) 0.0, Baso # (Auto) 0.0 Assessment and Plan Assessment and plan all Dx Assessment and Plan for all problems:: Pharmacokinetic dosing service Objective: Age: 38 yo Serum creatinine: 1.1 mg/dL Height: 70.1 Inches Weight (kg): 105.778 Diagnosis: SEPSIS/PNEUMONIA Assessment: IBW (kg): 73.23 Dosing wt(kg): 105.778 Estimated Creatinine clearance (ml/min): 94.3 CRCL method: Cockcroft and Gault using ibw(default). Drug selected: Vancomycin Loading dose (mg): 2250 MG Vd (liters): 74.0 (factor used: 0.7 L/kg) [place] (hr-1): 0.083 Half life (hrs): 8.35 CLvanco=?? 6.142 L/hr Recommended dose: 1750 mg Interval: 12 hrs Infusion time (hrs): 2.0 Predicted peak (mcg/mL): 34.6 Predicted trough (mcg/mL): 15.09 Total body weight is being used for vancomycin dosing. Recommendations: Give Vancomycin 1750 mg q 12 hrs with an expected Cpeak of 34.6 mcg/ml and an expected Ctrough of 15.09 mcg/ml AUC 0-24 /QUENTIN Data: QUENTIN 0.5 mcg/mL:?? AUC/QUENTIN:? 1139.7 QUENTIN 1.0 mcg/mL:?? AUC/QUENTIN:? 569.8 --------- QUENTIN 1.5 mcg/mL:?? AUC/QUENTIN:? 379.9 QUENTIN 2.0 mcg/mL:?? AUC/QUENTIN:? 284.9 Thank you for the consult
[2023-07-31 08:00] VITALS: BP 124/68; PULSE 100; PULSE 105; RESP 22; TEMP 36.7; O2SAT 93
[2023-07-31 08:59] LABS: Alanine Aminotransferase 24 U/L (12-78); Albumin Level 3.4 g/dl (3.5-5.0); Albumin/Globulin Ratio 0.9 (1.1-1.8); Alkaline Phosphatase 120 U/L (38-126); Anion Gap 8.2 mEq/L (5-15); Aspartate Amino Transferase 62 U/L (17-59); Bilirubin,Total 0.4 mg/dl (0.2-1.3); Blood Urea Nitrogen 7 mg/dl (9-20); Calcium 8.6 mg/dl (8.4-10.2); Carbon Dioxide 32 mmol/L (22.0-30.0); Chloride 103 mmol/L (98-107); Creatinine Clearance Estimated 214 mL/min (50-200); Estimated Glomerular Filt Rate 126 ml/min (>60); GFR (African American) 153 ML/MIN (>60); Globulin 3.7 g/dL (1.3-3.2); Glucose 153 mg/dl (74-100); Magnesium 2.4 mg/dl (1.6-2.3); Potassium 4.2 mmoL/L (3.5-5.1); Sodium 139 mmol/L (136-145); Total Protein,Serum 7.1 g/dl (6.3-8.2)
[2023-07-31] MEDS: DEXAMETHASONE 4MG TABLET 6 MG PO (09:07)
[2023-07-31] MEDS: ENOXAPARIN 40MG/0.4ML SYRINGE 40 MG SQ (09:07)
[2023-07-31 10:20] LABS: Lymphocytes % 8 % (10-50); Monocytes % 1 % (2-9); Neutrophils % 91 % (42-76); Platelet Estimate Normal; RBC Morphology Normal; Total Cells Counted 100
[2023-07-31 12:00] VITALS: BP 125/69; PULSE 89; PULSE 90; RESP 21; TEMP 36.4; O2SAT 97
[2023-07-31 13:14] LABS: Lactate Dehydrogenase 603 U/L (313-618)
--- NOTE | 2023-07-31 14:57 | PC.NURSE ---
Patient expressed to Dr. Basurto that he may want to leave AMA. RN went in to ask if patient wanted to leave AMA, patient stated that he thought he could stay and had been talked into it by his . Patient asked if he could go down to smoke RN informed patient of policy and that [facility] is a non-smoking facility. Patient was offered a nicotine patch but refused. Patient wanted to leave AMA at this point. Patient signed paperwork and left at 1411. Charge nurse, , service manager and cook house laborer aware.
--- NOTE | 2023-07-31 19:14 | P.DS_ITS ---
General Admission date:: 07/30/23 Discharge date: 07/31/23 HPI HPI HPI: This is a 38-year-old male with no apparent no medical history, other than IV drug use, presented to ED with concern for several days of shortness of breath, cough, congestion, bloody nasal discharge, and hemoptysis. Patient stated went to a music concert last Saturday and had something hard for fun he snorted it. he does not know what it was. He also notes that he has had full COVID and flu exposure, so he thought maybe he had an upper respiratory infection. He also complains that he is having pain on the right side of his chest, which he thinks is from coughing and pulling a muscle. He notes he has had fevers and chills as well as left lower extremity edema as well. He denies any abdominal pain, nausea, vomiting, changes in bowel movements, rashes, lesions, or other concerns. He denies any history of blood clots or clotting disorders. He also denies any history of endocarditis. Admitted for treatment and management Hospital Course Hospital Course Hospital Course: 38-year-old male with no apparent no medical history, other than IV drug use, presented to ED with concern for several days of shortness of breath, cough, congestion, bloody nasal discharge, and hemoptysis. Patient stated went to a music concert last Saturday and had something hard for fun he snorted it. on arrival patient presented hypoxic, tachycardic met sepsis criteria, went into fluid resuscitation. started on broad antibiotioc. CT of chest obtained. imaging reviewed. consistent with multifocal pneumonia. labs are remarkable for leukocytocys, electrolytes disturbances. elevated BNP. discussed with ED for admission. Patient was admitted and started on antibiotics. On 4 L oxygen. After much discussion, patient stated he was not staying. Said he had things he needed to take care of. Said his just left him the day before. Would not explain further as to why he felt the need to go. Extensive discussion about the danger and him leaving and the threat to life and limb if he left given his 4 L oxygen requirement, diffuse pneumonia/airspace disease on chest imaging. Patient was adamant he was not staying. Did not discharge on oxygen or antibiotics as he was leaving AMA and at this time it is my opinion he necessitates IV antibiotics and I do not see an appropriate oral regimen to de- escalate to at this point. Made that point very clear to patient. Stated understanding and continued to state that he was leaving because he felt better and did not want to be in the hospital. Diagnoses: -Sepsis with Acute hypoxic respiratory failure secondary to acquired pneumoania. to r/o pnemonitis secondary to drug aspiration. polysubstance abuse: Exam Data for Last 24 hours Vital signs and Labs for Last 24 Hours: Temp Pulse Resp BP Pulse Ox O2 Del Method O2 Flow Rate 97.6 F 89 21 125/69 97 Nasal Cannula 4 07/31/23 12:00 07/31/23 12:00 07/31/23 12:00 07/31/23 12:00 07/31/23 12:00 07/31/23 12:00 07/31/23 12:00 Laboratory Results - last 24 hr 07/30/23 19:10: Troponin I 0.02 07/30/23 22:40: Troponin I 0.01 07/31/23 06:50: WBC 16.6 H, RBC 3.68 L, Hgb 12.0 L, Hct 37.9 L, MCV 102.8 H, MCH 32.5 H, MCHC 31.6 L, RDW 12.7, Plt Count 331, MPV 8.7, Neut % (Auto) 93.3 H, Lymph % (Auto) 5.1 L, [place] % (Auto) 1.5 L, Eos % (Auto) 0.0 L, Baso % (Auto) 0.1, Neut # (Auto) 15.5 H, Lymph # (Auto) 0.9, [place] # (Auto) 0.2, Eos # (Auto) 0.0, Baso # (Auto) 0.0, Total Counted 100, Neutrophils % (Manual) 91 H, Lymphocytes % (Manual) 8 L, Monocytes % (Manual) 1 L, Platelet Estimate Normal, RBC Morphology Normal, Sodium 139, Potassium 4.2 D, Chloride 103, Carbon Dioxide 32 H, Anion Gap 8.2, BUN 7 L, Creatinine 0.70 D, Estimated Creat Clear 214, Estimated GFR 126, Est GFR ( Amer) 153 D, Glucose 153 H D, Calcium 8.6, Magnesium 2.4 H, Total Bilirubin 0.4, AST 62 H, ALT 24, Alkaline Phosphatase 120, Lactate Dehydrogenase 603, Total Protein 7.1, Albumin 3.4 L, Globulin 3.7 H, Albumin/Globulin Ratio 0.9 L I & O for Last 24 hours: Intake & Output 07/28/23 07/29/23 07/30/23 07/31/23 23:59 23:59 23:59 23:59 Intake Total 815 / 815 Output Total 0 / 0 0 / 0 Balance 0 / 0 815 / 815 Weight 113.398 kg 105.778 kg Microbiology Reports for the Last 24 Hours: Microbiology 07/30/23 16:24 Nasopharyngeal Coronavirus COVID-19 PCR - Final Constitutional Constitutional: no acute distress, obese, chronically ill appearing, disheveled and agitated *Routine HEENT Exam Head: Present normocephalic and atraumatic Eye: Present EOMI ENT: Present mucous membranes moist *Routine Neck Exam Neck: Present supple *Routine Respiratory Exam Respiratory: Present crackles; Absent respiratory distress, rhonchi or wheezes *Routine Cardiovascular Exam Cardiovascular: Present RRR *Routine Abdominal Exam Abdominal: Present soft *Routine Rectal Exam Patient deferred: visual exam *Routine Exam Patient deferred: penile exam *Routine Extremities Exam Extremities: Absent cyanosis *Routine Skin Exam Skin: Present intact *Routine Neurological Exam Neurological: Present alert, oriented X3 and moving all extremities; Absent altered mental status Routine Psychiatric Exam Psychiatric: Present normal affect; Absent suicidal ideation, cooperative, good insight or good judgment Results Data Completed and Pending Labs on day of discharge: Labs from last 24 hours 07/31/23 07/30/23 07/30/23 06:50 22:40 19:10 WBC 16.6 H RBC 3.68 L Hgb 12.0 L Hct 37.9 L MCV 102.8 H MCH 32.5 H MCHC 31.6 L RDW 12.7 Plt Count 331 MPV 8.7 Neut % (Auto) 93.3 H Lymph % (Auto) 5.1 L [place] % (Auto) 1.5 L Eos % (Auto) 0.0 L Baso % (Auto) 0.1 Neut # (Auto) 15.5 H Lymph # (Auto) 0.9 [place] # (Auto) 0.2 Eos # (Auto) 0.0 Baso # (Auto) 0.0 Total Counted 100 Neutrophils % (Manual) 91 H Lymphocytes % (Manual) 8 L Monocytes % (Manual) 1 L Platelet Estimate Normal RBC Morphology Normal Sodium 139 Potassium 4.2 D Chloride 103 Carbon Dioxide 32 H Anion Gap 8.2 BUN 7 L Creatinine 0.70 D Estimated Creat Clear 214 Estimated GFR 126 Est GFR ( Amer) 153 D Glucose 153 H D Calcium 8.6 Magnesium 2.4 H Total Bilirubin 0.4 AST 62 H ALT 24 Alkaline Phosphatase 120 Lactate Dehydrogenase 603 Troponin I 0.01 0.02 Total Protein 7.1 Albumin 3.4 L Globulin 3.7 H Albumin/Globulin Ratio 0.9 L DS: Diagnosis Discharge Diagnosis (1) Acute hypoxic respiratory failure: Status: Acute Code(s): J96.01 - Acute respiratory failure with hypoxia (2) Sepsis due to pneumonia: Status: Acute Code(s): J18.9 - Pneumonia, unspecified organism; A41.9 - Sepsis, unspecified organism (3) Drug-induced pneumonitis: Status: Acute Code(s): J98.4 - Other disorders of lung; T50.905A - Adverse effect of unspecified drugs, medicaments and biological substances, initial encounter (4) Polysubstance abuse: Status: Acute Code(s): F19.10 - Other psychoactive substance abuse, uncomplicated (5) Hypokalemia: Status: Acute Code(s): E87.6 - Hypokalemia (6) Elevated brain natriuretic peptide (BNP) level: Status: Acute Code(s): R79.89 - Other specified abnormal findings of blood chemistry Meds Home Medications and Allergies Home Medications Medication Instructions Recorded Confirmed Type buprenorphine 8 mg-naloxone 2 mg 1 film sublingual BID 07/30/23 07/31/23 History sublingual film New Prescriptions to Start Prescriptions: Allergies Allergy/AdvReac Type Severity Reaction Status Date / Time No Known Allergies Allergy Verified 07/30/23 16:03 Discharge Plan Disposition Patient Disposition: Left Against Medical Advice Providers Admit Provider: Marty Basurto Attending Provider: Marty Basurto
--- NOTE | 2023-07-31 21:08 | CA_ITS ---
APPROVED REPORT EXAM: Comprehensive 2D, Doppler, and color-flow Echocardiogram Backup Sawyer: Bela Jamil CRT Ht: 5 ft 10 in Wt: 250lbs BSA: 2.29 BP: 107/57 mmHg Indications: sepsis, drug use, pneumonia,fever 2D Dimensions LA Volume 93.40 mL LA Volume Index 39.70 mL/m2 (M/F) 16-34 M-Mode Dimensions RVDd 2.97 cm (0.9-2.6) LA Diam 4.53 cm (1.9-4.0) LVDd 5.51 cm (3.5-5.7) LVDs 3.54 cm (3.5-5.7) IVSd 1.44 cm (0.6-1.1) PWd 0.97 cm (0.6-1.1) EF (Teich) 64.70% FS 35.80% EDV (Teich) 148.00 mL TAPSE 3.24 (<1.7) ESV (Teich) 52.30 mL LV Diastology E Decel Time 143 (160-240 msec) E/A Ratio 1.04 MED A' 15.70 cm/s LAT A' 18.80 cm/s Aortic Valve AO Peak GR. 9.10 mmHg Mitral Valve MV E Max Sam. 110.0 (40-130 cm/s) MV A Velocity 106.0 (40-130 cm/s) E/A Ratio 1.04 MV PHT 42.0 ms Pulmonary Valve PV Peak Velocity 159.0 (50-150 cm/s) Tricuspid Valve TR P. Velocity 343.00 cm/s RAP Estimate 10.00 mmHg RVSP 57.10 mmHg Left Ventricle The left ventricle is normal size. The left ventricular systolic function is normal. The left ventricular ejection fraction is within the normal range. There is normal left ventricular wall thickness. There is normal LV segmental wall motion. The left ventricular diastolic function is normal. LVEF is 55%. Right Ventricle The right ventricle is mildly dilated. Right ventricle is mildly hypokinetic. Atria Left atrium is mildly dilated. The right atrium size is normal. There is no Doppler evidence of interatrial shunt. Aortic Valve The aortic valve is normal in structure. The aortic valve is trileaflet. Trace aortic regurgitation. There is no aortic valvular stenosis. Mitral Valve The mitral valve is normal in structure. No evidence of mitral valve stenosis. There is no mitral valve regurgitation noted. Tricuspid Valve The tricuspid valve leaflets are thin and pliable. Mild tricuspid regurgitation. There is insufficient TR jet to estimate RVSP. Pulmonic Valve The pulmonary valve is normal in structure. Trace pulmonic regurgitation. Great Vessels The aortic root is normal in size. The ascending aorta is normal in size. IVC is normal in size and collapses >50% with inspiration. Pericardium There is no pericardial effusion. Other Information Study Quality: Fair Conclusion Normal LV systolic function. Mild RV dilation with mild reduction in RV function. Mild TR. No clear evidence of vegetations or mobile echodensities on the valves (as evaluated in the setting of recent history of fevers). If there is clinical concern for endocarditis (history of fever), note that this TTE does not entirely rule out valvular vegetations. If deemed clinically necessary, further evaluation with LAUREL may be suggested. Electronically signed by : Sho Kraft MD 08/01/2023 12:59:05
--- NOTE | 2023-08-01 07:28 | EXP.ACUTE.PN ---
Subjective *Date: 08/01/23 *Time: 07:28 Medical Exam Vital signs and Labs for Last 24 Hours: Vital Signs Temp Pulse Pulse Resp BP Pulse Ox O2 Del Method 07/31/23 12:00 90 07/31/23 12:00 97.6 F 89 21 125/69 97 Nasal Cannula 07/31/23 08:00 Nasal Cannula 07/31/23 08:00 98.0 F 100 H 22 124/68 93 L Nasal Cannula 07/31/23 08:00 105 H O2 Flow Rate 07/31/23 12:00 07/31/23 12:00 4 07/31/23 08:00 07/31/23 08:00 4 07/31/23 08:00 Intake and Output 07/31/23 07/31/23 08/01/23 15:59 23:59 07:59 Intake Total 815 / 815 Output Total 0 / 0 Balance 815 / 815 Intake: Intake, Oral Amount 815 / 815 Output: Output, Urine Amount 0 / 0 Other: Number of Unmeasured Voids 2 Number of Bowel Movements 1 Laboratory Results - last 24 hr 07/31/23 06:50: Total Counted 100, Neutrophils % (Manual) 91 H, Lymphocytes % (Manual) 8 L, Monocytes % (Manual) 1 L, Platelet Estimate Normal, RBC Morphology Normal, Sodium 139, Potassium 4.2 D, Chloride 103, Carbon Dioxide 32 H, Anion Gap 8.2, BUN 7 L, Creatinine 0.70 D, Estimated Creat Clear 214, Estimated GFR 126, Est GFR ( Amer) 153 D, Glucose 153 H D, Calcium 8.6, Magnesium 2.4 H, Total Bilirubin 0.4, AST 62 H, ALT 24, Alkaline Phosphatase 120, Lactate Dehydrogenase 603, Total Protein 7.1, Albumin 3.4 L, Globulin 3.7 H, Albumin/Globulin Ratio 0.9 L I & O for Labs for Last 24 Hours: Intake & Output 07/29/23 07/30/23 07/31/23 08/01/23 23:59 23:59 23:59 23:59 Intake Total 815 / 815 Output Total 0 / 0 0 / 0 Balance 0 / 0 815 / 815 Weight 113.398 kg 105.778 kg Assessment and Plan *Assessment and plan (1) Altered mental status: Status: Acute Category: Medical Code(s): R41.82 - Altered mental status, unspecified (2) Substance abuse: Status: Acute Category: Medical Code(s): F19.10 - Other psychoactive substance abuse, uncomplicated (3) Pneumonia: Status: Acute Category: Medical Code(s): J18.9 - Pneumonia, unspecified organism (4) Respiratory failure: Status: Acute Category: Medical Code(s): J96.90 - Respiratory failure, unspecified, unspecified whether with hypoxia or hypercapnia (5) Scleroderma: Status: Chronic Category: Medical Code(s): M34.9 - Systemic sclerosis, unspecified Plan 38-year-old male with no apparent no medical history, other than IV drug use, presented to ED with concern for several days of shortness of breath, cough, congestion, bloody nasal discharge, and hemoptysis. Patient stated went to a music concert last Saturday and had something hard for fun he snorted it. on arrival patient presented hypoxic, tachycardic met sepsis criteria, went into fluid resuscitation. started on broad antibiotioc. CT of chest obtained last admission with multifocal pneumonia concerning for pneumonitis, pneumonia, inflammation. Continuing antibiotics at this time. Pulm consult today. Continues to require inpatient management. Problems addressed as follows: -Sepsis with Acute hypoxic respiratory failure secondary to acquired pneumoania. to r/o pnemonitis secondary to drug aspiration. polysubstance abuse: Patient readmitted after leaving AMA. Resumed IV antibiotics with Zosyn and vancomycin. Continue supplemental oxygen with goal saturation greater than percent. Currently on 4 L Pulmonology consulted, appreciate their assistance in care. Labs still pending from last admission including RAPHAEL, HIV, sputum and blood cultures kari. Patient frankly altered at this time and unable to give much history. White cell count 16 on presentation. Repeat CBC, CMP, magnesium ordered for the morning Of note, has a history of scleroderma Encephalopathy -Likely toxic due to substance abuse. - Previously expressed interest in detox program. CM/psychiatric social worker consult to assist with D/c plan -Currently on CIWA protocol given agitation and concern for benzodiazepine dependence/addiction/abuse BNP elevated: Echo obtained yesterday. Awaiting formal result to evaluate for possible myocarditis. No complaint of chest pain at this time however difficult to obtain much review of systems from patient Lovenox for dvt ppx. protonix Full code
[2023-08-01 07:33] LABS: HIV Screen 4th Generation wRfx Non Reactive (Non Reactive)
[2023-08-03 12:43] LABS: Antinuclear Antibodies (ANA) Negative
== END 2023-07-31 14:11 | disposition left against medical advice (07) | DRG 177 ==
LOC: UTC 15:42 → ER 16:06 → 2ND 18:34
PROVIDERS: Nurse Practitioner Family; Admitting Provider Internal Medicine Adolescent Medicine; Emergency Provider Emergency Medicine; PCP Nurse Practitioner Family; Visit Provider Internal Medicine Adolescent Medicine
DX: J69.0 Pneumonitis due to inhalation of food and vomit (principal); A41.9 Sepsis, unspecified organism; J96.01 Acute respiratory failure with hypoxia; T50.905A Adverse effect of unspecified drugs, medicaments and biological substances, initial encounter; F19.10 Other psychoactive substance abuse, uncomplicated; E87.6 Hypokalemia; Z87.891 Personal history of nicotine dependence
CPT/HCPCS: 36415; 71046; 71275; 80053; 80307; 81001; 82803; 83615; 83735; 83880; 84484; 85007; 85025; 85610; 85651; 85730; 86038; 86140; 86225; 86235; 86703; 87040; 87635; 87804; 87880; 93005; 93306; 99285; G0432; J2543; J3370; Q9967

== ENCOUNTER 2023-07-31 19:06 | Inpatient (IN) | payer BC, SELFPAY ==
[2023-07-31] VITALS (7 sets, daily range): BP systolic 111–113; BP diastolic 56–65; PULSE 70–78; RESP 16–18; TEMP 36.6–36.8; O2SAT 79–97; BMI 35.9; BMI 73.1; BMI 33.2
--- NOTE | 2023-07-31 19:34 | XR_ITS ---
PROCEDURE INFORMATION: Exam: XR Chest Exam date and time: 07/31/2023 7:33 PM Age: 38 years old Clinical indication: Other: AMS; Additional info: AMS, pneumonia TECHNIQUE: Imaging protocol: Radiologic exam of the chest. Views: 1 view. COMPARISON: 1. CR XR CHEST 2V 07/30/2023 3:[address] ANGIO CHEST PE PROTOCOL 07/30/2023 5:25 PM FINDINGS: Lungs: Bilateral patchy ground-glass opacities with mild right lung base consolidation. Mild pulmonary vascular congestion. Pleural spaces: Normal. No pleural effusion. No pneumothorax. Heart/Mediastinum: Mildly enlarged cardiac silhouette. Bones/joints: Unremarkable. IMPRESSION: Bilateral patchy ground-glass opacities with mild right lung base consolidation has not significantly changed. Findings could be secondary to atypical pneumonia, edema, or hypersensitivity reaction.
--- NOTE | 2023-07-31 20:01 | PC.NURSE ---
Pts reports giving narcan to pt intranasally about 30mins before arriving to ED
--- NOTE | 2023-07-31 20:12 | HMH.EDGENADL ---
Discharge Plan Disposition Patient Disposition: Admitted Clinical Impressions Clinical Impression: Respiratory failure, Pneumonia, Substance abuse, Altered mental status Discharge ED Provider: Cyn Bowling General Adult HPI General Chief complaint: Altered Mental Status Stated complaint: AMS Time Seen by Provider: 07/31/23 19:33 Mode of Arrival: Ambulatory Source of Information: Significant Other Limitations: Altered Mental Status Description of Symptoms (Recalled from ER Triage Doc. by RN): Pt to ED with with AMS starting approx 1-2 hours ago per . Per , pt was on 2nd floor as inpatient today here at [facility] and she had to leave hospital. states when she left hospital, pt signed out AMA. Pt reports i had things to take care of in a certain time frame. states pt has hx of heroin use, but has not used heroin in 7-8 months. reports pt was with his mother today and mother denies seeing him use any illicit drugs. pt denies drug use today. also reports pt used xanax 2 days ago. reports pt was aggressive on their way to ED tonight, reports pt bit her arm and tells me to be careful around pt. Upon initial assessment, pt O2 sats 79%. Pt placed on 4L NC which brought O2 sat to 97%. Pt is disoriented to person, place, and time. PERRLA. Pupils 2mm. History of Present Illness HPI narrative: This patient is a 38-year-old male with a history of polysubstance abuse presenting with concern for altered mental status and shortness of breath. Patient was admitted yesterday after evaluation in the emergency department by myself at which point he was found to have bilateral pneumonia and respiratory failure. Unfortunately, the patient left AGAINST MEDICAL ADVICE earlier this morning. He was requiring 3 L nasal cannula upon medical record review at the time of leaving AGAINST MEDICAL ADVICE. Patient and family deny any substance use since discharge, however patient is somnolent but arouses to voice. He states he feels short of breath but denies other issues. Related Data Home Medications Medication Instructions Recorded Confirmed buprenorphine 8 mg-naloxone 2 mg 1 film sublingual BID 07/30/23 07/31/23 sublingual film Allergies Allergy/AdvReac Type Severity Reaction Status Date / Time No Known Allergies Allergy Verified 07/30/23 16:03 [facility] Disclaimer: The information contained in this section may have been updated after the patient was seen, as this information can be updated by other users. Social History Smoking Status: Current every day smoker alcohol intake: former substance use type: marijuana, crack/cocaine and IV drugs current occupational status: unemployed Travel in the last 8 weeks: None ROS Obtained: Yes All systems reviewed & no additional complaints except as documented Physical Exam General General appearance: obtunded Comment: Somnolent but arouses to voice. Head Head exam: atraumatic and normocephalic Eye Eye exam: Present EOMI and miosis ENT ENT exam: Present normal exam, normal oropharynx, mucous membranes moist and normal external ear exam Neck Neck exam: Present normal inspection, full ROM and trachea midline; Absent tenderness Chest Chest inspection: Present normal inspection and symmetric chest wall rise; Absent tenderness Respiratory Respiratory exam: Present wheezes and other (Coarse bilateral rhonchi. Hypoxic requiring 4 L nasal cannula for supplemental oxygenation); Absent respiratory distress, stridor or accessory muscle use Cardiovascular Cardiovascular exam: Present regular rate and normal rhythm Abdominal Exam Abdominal exam: Present soft; Absent distention, tenderness or guarding Extremities Exam Extremities exam: Present normal inspection, full ROM and normal capillary refill; Absent tenderness or edema Back Exam Back exam: Present normal inspection and full ROM; Absent tenderness Neurological Exam Neurological exam: Present oriented X3, CN II-XII intact and normal gait; Absent motor sensory deficit Expanded Neurological Exam Coma scale eye opening: To voice Coma scale motor response: Obeys commands Coma scale verbal response: Oriented Coma scale total: 14 Psychiatric Psychiatric exam: Present normal affect and normal mood Skin Skin exam: Present warm and dry Medical Decision Making Medical Records Medical records reviewed: Yes I reviewed the patient's medical records. Christiano Inquiry Pt receiving controlled substance: No Vital Signs: 07/31/23 19:31 07/31/23 20:01 Temperature 98.3 F Temperature Source Oral Pulse Rate [Apical] 77 Respiratory Rate 18 Blood Pressure [Right Arm] 113/61 Blood Pressure Mean [Right Arm] 78 Blood Pressure Source [Right Arm] Automatic Cuff Blood Pressure Position [Right Arm] Sitting 02 Sat by Pulse Oximetry 79 L 97 Oxygen Delivery Method Room Air Nasal Cannula Oxygen Flow Rate (LPM) 4 Lab Data Lab results reviewed: Yes I reviewed the patient's lab results. Orders (Tests/Meds): ED MEDICATIONS Generic Name Dose Route Start Last Admin Trade Name Freq PRN Reason Stop Dose Admin Acetaminophen 650 mg 07/31/23 20:18 Acetaminophen 325mg Tab PO 08/30/23 20:17 Q4HP PRN Fever or Mild Pain (1-3) Enoxaparin Sodium 40 mg 07/31/23 20:30 Enoxaparin 40mg/0.4ml Syringe SQ 08/30/23 20:29 DAILY GOSIA Sodium Chloride 1,000 mls @ 50 mls/hr 07/31/23 20:30 Sod Chlor 0.9% 1000ml Bag IV 08/30/23 20:29 .Q20H GOSIA Piperacillin Sod/Tazobactam 100 mls @ 200 mls/hr 07/31/23 20:30 Sod 4.5 gm/ Sodium Chloride IV 08/10/23 20:29 Q6H GOSIA Miscellaneous 1 each 07/31/23 20:30 Vancomycin Consult Request NOTAPPLIC 08/30/23 20:29 CONSULT PHARMACY GOSIA Nicotine 21 mg 07/31/23 20:18 Nicotine 21mg/24hr Patch TD 08/30/23 20:17 DAILYP PRN Nicotine Cravings Pantoprazole Sodium 40 mg 07/31/23 20:30 Pantoprazole 40mg Tablet PO 08/30/23 20:29 DAILY GOSIA ORDERS Category Date Time Status XR chest portable Stat Exams 07/31/23 19:34 Completed Acetaminophen Stat Lab 07/31/23 19:33 Ordered Complete Blood Count Auto Diff AMLAB Lab 08/01/23 06:00 Ordered Complete Blood Count Auto Diff Stat Lab 07/31/23 19:33 Ordered Comprehensive Metabolic Panel AMLAB Lab 08/01/23 06:00 Ordered Comprehensive Metabolic Panel Stat Lab 07/31/23 19:33 Ordered Drug Screen,Urine Stat Lab 07/31/23 19:33 Ordered Ethyl Alcohol Stat Lab 07/31/23 19:34 Ordered Magnesium AMLAB Lab 08/01/23 06:00 Ordered Salicylate Stat Lab 07/31/23 19:33 Ordered Urinalysis and Microscopic Stat Lab 07/31/23 19:33 Ordered Venous Blood Gas Stat RT 07/31/23 19:33 Ordered Medical Decision Narrative: In summary, this patient is a 38-year-old male presenting to the Emergency Department for evaluation of altered mental status and continued shortness of breath after leaving AGAINST MEDICAL ADVICE earlier this morning. He was admitted for respiratory failure in the setting of pneumonia and polysubstance abuse. Upon assessment, the patient is hypoxic requiring 4 L nasal cannula, but he is in no acute distress and vitals are otherwise reassuring. Basic workup including CBC, CMP, VBG, urinalysis, urine drug screen, serum acetaminophen, and serum salicylate were ordered. I had an interactive discussion with the hospitalist who came down at this time and noted that the patient could just be admitted for further evaluation and management because he was just discharged. He requires further treatment of his pneumonia and respiratory failure which she was admitted for. I advised to the patient that he not leave AGAINST MEDICAL ADVICE this time, as it is important that he completes treatment and he is already demonstrated that it is unsafe for him to go home. Patient is agreeable. Patient was admitted in stable condition for further evaluation and management. Critical Care Critical Care Time Critical Care Time: No
--- NOTE | 2023-07-31 20:31 | PC.NURSE ---
called report to lucina gonzalez
--- NOTE | 2023-07-31 20:49 | PC.NURSE ---
Balaji Farrar RN at bedside for US guided IV.
--- NOTE | 2023-07-31 20:49 | PC.NURSE ---
RT notified of green top tube for VBG being in lab
[2023-07-31 20:55] LABS: Lactate Venous 0.9 mmol/L (0.4-2.0); VBG Base Excess 4.6 mmol/L (-2.4-2.3); VBG HCO3 29.5 mmol/L (23-30); VBG Oxygen Saturation 81.5 % (50-70); VBG PO2 42.8 mmol/L (28-40)
[2023-07-31 21:04] LABS: Chloride 102 mmol/L (98-107); Sodium 137 mmol/L (136-145)
[2023-07-31 21:05] LABS: Potassium 4.2 mmoL/L (3.5-5.1)
[2023-07-31 21:07] LABS: Alanine Aminotransferase 26 U/L (12-78); Albumin Level 3.3 g/dl (3.5-5.0); Alkaline Phosphatase 123 U/L (38-126); Anion Gap 4.2 mEq/L (5-15); Aspartate Amino Transferase 59 U/L (17-59); Bilirubin,Total 0.3 mg/dl (0.2-1.3); Blood Urea Nitrogen 11 mg/dl (9-20); Calcium 8.4 mg/dl (8.4-10.2); Carbon Dioxide 35 mmol/L (22.0-30.0); Creatinine Clearance Estimated 268 mL/min (50-200); Estimated Glomerular Filt Rate 151 ml/min (>60); GFR (African American) 182 ML/MIN (>60); Globulin 3.4 g/dL (1.3-3.2); Glucose 125 mg/dl (74-100); Total Protein,Serum 6.7 g/dl (6.3-8.2)
[2023-07-31 21:09] LABS: Acetaminophen < 10 ug/ml (10-30); Salicylate < 1.0 mg/dL (2.0-20.0)
--- NOTE | 2023-07-31 21:09 | PC.NURSE ---
US guided 20G IV inserted to FIONA by MD Bowling.
[2023-07-31 21:15] LABS: Basophils % 0.2 % (0.1-2.0); Hematocrit 33.8 % (42.0-52.0); Hemoglobin 10.8 g/dL (14.1-18.0); Lymphocytes # 1.4 K/mm3 (0.7-4.5); Lymphocytes % 8.6 % (10-50); Mean Corpuscular HGB Conc 32.1 g/dL (31.8-35.4); Mean Corpuscular Hemoglobin 32.2 pg (27.0-31.2); Mean Corpuscular Volume 100.4 fl (80-94); Mean Platelet Volume 8.6 fl (7.4-10.4); Monocytes # 0.5 K/mm3 (0.1-1.0); Monocytes % 2.9 % (1.7-9.3); Neutrophils # 14.5 K/mm3 (1.8-7.8); Neutrophils % 88.3 % (37.0-80.0); Platelet Count 345 K/mm3 (142-424); Red Blood Count 3.37 M/mm3 (4.60-6.20); Red Cell Distribution Width 12.8 % (11.5-17.5); White Blood Count 16.4 K/mm3 (4.8-10.8)
[2023-07-31 21:17] LABS: MANUAL DIFFERENTIAL MANUAL DIFFERENTIAL (MANUAL DIFF)
[2023-07-31 21:21] LABS: Ethyl Alcohol < 10 mg/dl (0-10)
[2023-07-31 21:31] LABS: Hypochromasia 1+; Lymphocytes % 7 % (10-50); Macrocytosis 1+; Monocytes % 2 % (2-9); Neutrophils % 91 % (42-76); Platelet Estimate Normal; Total Cells Counted 100
--- NOTE | 2023-07-31 21:43 | PC.NURSE ---
Gilmer arrived to floor via stretcher from ED at 21:23.
[2023-07-31] MEDS: 0.9 % SODIUM CHLORIDE 1000ML 1,000 ML 50 ML IV (21:51)
[2023-07-31] MEDS: PIPERACILLIN/TAZO 4.5 GM in 0.9 % SODIUM CHLORIDE 100 ML IV (21:52)
[2023-07-31] MEDS: ENOXAPARIN 40MG/0.4ML SYRINGE 40 MG SQ (21:52)
[2023-07-31] MEDS: PANTOPRAZOLE 40MG TABLET 40 MG PO (21:53)
[2023-07-31] MEDS: VANCOMYCIN CONSULT REQUEST 1 EACH NOTAPPLIC (21:59)
[2023-07-31] MEDS: VANCOMYCIN HCL 2,500 MG in 0.9 % SODIUM CHLORIDE 250 ML 125 MG IV (22:30)
[2023-08-01] VITALS (10 sets, daily range): BP systolic 101–139; BP diastolic 49–72; PULSE 57–93; RESP 16–24; TEMP 36.5–36.9; O2SAT 91–97; BMI 33.2
[2023-08-01] MEDS: PIPERACILLIN/TAZO 4.5 GM in 0.9 % SODIUM CHLORIDE 100 ML IV ×2 (03:20→09:56)
[2023-08-01 05:58] LABS: Microscopic, Urine URINE MICROSCOPIC (MICROSCOPIC)
[2023-08-01 06:00] LABS: Appearance,Urine CLEAR (Clear); Bilirubin,Urine Negative (Negative); Blood, Urine Negative (Negative); Color,Urine YELLOW (Yellow); Glucose,Urine (UA) Negative (Negative); Ketones,Urine Negative (Negative); Leukocyte Esterase,Urine Negative (Negative); Nitrate,Urine Negative (Negative); PH,Urine 6.5 (5.0-8.5); Protein,Urine TRACE (Negative); Specific Gravity, Urine 1.015 (1.005-1.030)
[2023-08-01 06:14] LABS: Squamous Epithelial Cell,Urine Occasional #/hpf (0-5)
[2023-08-01 06:15] LABS: Bacteria,Urine Trace /lpf
--- NOTE | 2023-08-01 07:11 | HMH.PHAINT1 ---
Pharmacy Intervention Comments: Home medication list completed via outside pharmacy.
--- NOTE | 2023-08-01 07:40 | P.CONPHA_ITS ---
Pharmacy Consult Date: 08/01/23 Time: 07:42 Referring provider: DR URIOSTEGUI Reason for Consult:: VANCOMYCIN DOSING CONSULT Allergies Allergy/AdvReac Type Severity Reaction Status Date / Time No Known Allergies Allergy Verified 07/30/23 16:03 Home Medications Medication Instructions Recorded Confirmed Type buprenorphine 8 mg-naloxone 2 mg 1 film sublingual BID 07/30/23 07/31/23 History sublingual film New Prescriptions to Start Prescriptions: Height: 1.78 m Weight: 105.188 kg Laboratory Results:: Laboratory Results - last 24 hr 07/31/23 05:55: Urine Color Yellow, Urine Appearance Clear, Urine pH 6.5, Ur Specific [place] 1.015, Urine Protein Trace, Urine Glucose (UA) Negative, Urine Ketones Negative, Urine Blood Negative, Urine Nitrate Negative, Urine Bilirubin Negative, Urine Urobilinogen 2.0, Ur Leukocyte Esterase Negative, Urine RBC None, Urine WBC None, Ur Squamous Epith Cells Occasional, Urine Bacteria Trace 07/31/23 19:33: VBG pH 7.40, VBG pCO2 49.0, VBG pO2 42.8 H, VBG HCO3 29.5, VBG Total CO2 31.0 H, VBG O2 Saturation 81.5 H, VBG Base Excess 4.6 H, VBG Lactic Acid 0.9 07/31/23 20:46: Sodium 137, Potassium 4.2, Chloride 102, Carbon Dioxide 35 H, Anion Gap 4.2 L, BUN 11 D, Creatinine 0.60 L, Estimated Creat Clear 268, Estimated GFR 151, Est GFR ( Amer) 182, Glucose 125 H, Calcium 8.4, Total Bilirubin 0.3, AST 59, ALT 26, Alkaline Phosphatase 123, Total Protein 6.7, Albumin 3.3 L, Globulin 3.4 H, Albumin/Globulin Ratio 1.0 L, Salicylates < 1.0 L , Acetaminophen < 10 L, Plasma/Serum Alcohol < 10 07/31/23 21:07: WBC 16.4 H, RBC 3.37 L, Hgb 10.8 L, Hct 33.8 L, MCV 100.4 H, MCH 32.2 H, MCHC 32.1, RDW 12.8, Plt Count 345, MPV 8.6, Neut % (Auto) 88.3 H, Lymph % (Auto) 8.6 L, [place] % (Auto) 2.9, Eos % (Auto) 0.0 L, Baso % (Auto) 0.2, Neut # (Auto) 14.5 H, Lymph # (Auto) 1.4, [place] # (Auto) 0.5, Eos # (Auto) 0.0, Baso # (Auto) 0.0, Total Counted 100, Neutrophils % (Manual) 91 H, Lymphocytes % (Manual) 7 L, Monocytes % (Manual) 2, Platelet Estimate Normal, Hypochromasia 1+, Macrocytosis 1+ Medical History: Medical History (Updated 08/01/23 @ 07:29 by Marty Uriostegui MD) Scleroderma Assessment and Plan Assessment and plan all Dx Assessment and Plan for all problems:: Pharmacokinetic dosing service Objective: Age: 38 yo Serum creatinine: 0.6 mg/dL Height: 70.1 Inches Weight (kg): 105.188 Diagnosis: PNEUMONIA Assessment: IBW (kg): 73.23 Dosing wt(kg): 105.188 Estimated Creatinine clearance (ml/min): 130 Clearance limited to 130 ml/min to reduce risk of overdosing. CRCL method: Cockcroft and Gault using ibw(default). Drug selected: Vancomycin Loading dose (mg): 2500 MG Vd (liters): 73.6 (factor used: 0.7 L/kg) [place] (hr-1): 0.112 Half life (hrs): 6.19 CLvanco=?? 8.243 L/hr Recommended dose: 2250 mg Interval: 12 hrs Infusion time (hrs): 2.0 Predicted peak (mcg/mL): 37.1 Predicted trough (mcg/mL): 12.10 Total body weight is being used for vancomycin dosing. Recommendations: Give Vancomycin 2250 mg q 12 hrs with an expected Cpeak of 37.1 mcg/ml and an expected Ctrough of 12.10 mcg/ml TO START 08/01/23 AT 10:00, LOADING DOSE OF VANCOMYCIN 2500 MG IV GIVEN 07/31/23 AT 21:45. AUC 0-24 /QUENTIN Data: QUENTIN 0.5 mcg/mL:?? AUC/QUENTIN:? 1091.8 QUENTIN 1.0 mcg/mL:?? AUC/QUENTIN:? 545.9 --------- QUENTIN 1.5 mcg/mL:?? AUC/QUENTIN:? 363.9 QUENTIN 2.0 mcg/mL:?? AUC/QUENTIN:? 273.0 Thank you for the consult
[2023-08-01 08:05] LABS: Albumin Level 2.9 g/dl (3.5-5.0); Albumin/Globulin Ratio 0.9 (1.1-1.8); Alkaline Phosphatase 84 U/L (38-126); Anion Gap 7.5 mEq/L (5-15); Bilirubin,Total 0.3 mg/dl (0.2-1.3); Calcium 8.3 mg/dl (8.4-10.2); Carbon Dioxide 30 mmol/L (22.0-30.0); Chloride 108 mmol/L (98-107); Globulin 3.3 g/dL (1.3-3.2); Glucose 111 mg/dl (74-100); Potassium 4.5 mmoL/L (3.5-5.1); Sodium 141 mmol/L (136-145); Total Protein,Serum 6.2 g/dl (6.3-8.2)
[2023-08-01 08:16] LABS: Basophils % 0.3 % (0.1-2.0); Eosinophils % 0.2 % (0.1-12.0); Hematocrit 33.5 % (42.0-52.0); Hemoglobin 10.7 g/dL (14.1-18.0); Lymphocytes # 1.9 K/mm3 (0.7-4.5); Mean Platelet Volume 8.7 fl (7.4-10.4); Monocytes # 0.5 K/mm3 (0.1-1.0); Monocytes % 3.2 % (1.7-9.3); Neutrophils # 12.3 K/mm3 (1.8-7.8); Neutrophils % 83.4 % (37.0-80.0); Platelet Count 360 K/mm3 (142-424); Red Blood Count 3.35 M/mm3 (4.60-6.20); Red Cell Distribution Width 12.9 % (11.5-17.5); White Blood Count 14.8 K/mm3 (4.8-10.8)
[2023-08-01 08:41] LABS: Alanine Aminotransferase 19 U/L (12-78); Aspartate Amino Transferase 41 U/L (17-59); Blood Urea Nitrogen 12 mg/dl (9-20); Creatinine Clearance Estimated 213 mL/min (50-200); Estimated Glomerular Filt Rate 126 ml/min (>60); GFR (African American) 153 ML/MIN (>60); Magnesium 2.3 mg/dl (1.6-2.3)
[2023-08-01] MEDS: THIAMINE 100MG TABLET 100 MG PO (09:55)
[2023-08-01] MEDS: FOLIC ACID 1MG TABLET 1 MG PO (09:55)
[2023-08-01] MEDS: BUPRENORPHINE/NALOXONE 8MG/2MG ODT 1 EACH SL ×2 (09:55→21:55)
[2023-08-01] MEDS: ENOXAPARIN 40MG/0.4ML SYRINGE 40 MG SQ (09:55)
[2023-08-01 10:20] LABS: Lactate Dehydrogenase 387 U/L (313-618)
[2023-08-01] MEDS: VANCOMYCIN HCL 2,250 MG in 0.9 % SODIUM CHLORIDE 250 ML 125 MG IV (11:33)
[2023-08-01 11:40] LABS: Adenovirus,PCR Not Detected (NotDetected); Coronavirus 19, PCR Not Detected (NotDetected); Coronavirus 229E Not Detected (NotDetected); Coronavirus NL63 Not Detected (NotDetected); Coronavirus OC43 Not Detected (NotDetected); Coronovirus HKU1,PCR Not Detected (NotDetected); Human Metapneumovirus Not Detected (NotDetected); Influenza A, PCR Not Detected (NotDetected); Influenza AH1, 2009 Not Detected (NotDetected); Influenza AH1, PCR Not Detected (NotDetected); Influenza AH3,PCR Not Detected (NotDetected); Influenza B, PCR Not Detected (NotDetected); Parainfluenza 1, PCR Not Detected (NotDetected); Parainfluenza 2, PCR Not Detected (NotDetected); Parainfluenza 3, PCR Not Detected (NotDetected); Parainfluenza 4, PCR Not Detected (NotDetected); Respiratory Syncytial Virus Not Detected (NotDetected); Rhinovirus/Enterovirus Not Detected (NotDetected)
[2023-08-01 11:47] LABS: Amphetamine/Metha Screen,Urine Negative ng/ml (<1000)
[2023-08-01 11:52] LABS: Phencyclidine Screen,Urine Negative ng/ml (<25)
[2023-08-01 11:55] LABS: Barbiturates Screen,Urine Negative ng/ml (<200)
[2023-08-01 11:56] LABS: Benzodiazepines Screen,Urine Positive ng/ml (<200); Cannabinoid Screen,Urine Negative ng/ml (<50)
[2023-08-01 11:58] LABS: Cocaine Screen,Urine Positive ng/ml (<300)
[2023-08-01 11:59] LABS: Methadone Screen,Urine Negative ng/ml (<300); Opiate Screen,Urine Negative ng/ml (<300)
--- NOTE | 2023-08-01 12:26 | EXP.PULM.CON ---
History of Present Illness History of present illness: Ms. Herrera is a 38-year-old presented to the ER with worsening respiratory distress 5 days prior to presentation for further evaluation and management. Patient presents tobacco and marijuana. He also snorts drugs. History of IV drug abuse. Patient admits snorting drugs unknown 48 hours prior to presentation with worsening respiratory distress. [facility] Disclaimer: The information contained in this section may have been updated after the patient was seen, as this information can be updated by other users. Medical History (Updated 08/01/23 @ 12:34 by Felix Cosby MD) ILD (interstitial lung disease) Scleroderma Social History (Updated 07/31/23 @ 21:35 by Padmini Ames RN) Smoking Status: Current every day smoker alcohol intake: former substance use type: marijuana, crack/cocaine and IV drugs current occupational status: unemployed Travel in the last 8 weeks: None household members: spouse Review of Systems Constitutional Constitutional: Reports body ache(s) and Reports fatigue Eyes Eyes: Denies eye discharge, Denies dry eyes, Denies irritation and Denies itchy eyes ENT Ears, Nose, Mouth, and Throat: Denies epistaxis, Denies facial pain, Denies lip swelling and Denies throat swelling *Cardiovascular Cardiovascular: Reports dyspnea and Reports dyspnea on exertion *Respiratory Respiratory: Reports chest congestion, Reports cough, Reports dyspnea, Reports dyspnea on exertion, Denies excessive phlegm production, Denies hemoptysis, Reports pain on inspiration, Reports pain with cough and Denies wheezing *Gastrointestinal Gastrointestinal: Denies abdominal pain, Denies belching and Denies cramping *Musculoskeletal Musculoskeletal: Reports back pain, Reports myalgias and Reports other (No small joint swelling or Pain) Psychiatric Psychiatric: Denies homicidal ideation and Denies suicidal ideation Endocrine Endocrine: Reports fatigue and Denies heat intolerance Hematologic/Lymphatic Hematologic/Lymphatic: Denies easy bleeding and Denies lymphadenopathy Allergic/Immunologic Allergic/Immunologic: Denies itchy eyes, Denies lip swelling, Denies throat swelling and Denies wheezing Pulmonology Exam Inpatient Vital signs and Labs for Last 24 Hours: Temp Pulse Resp BP Pulse Ox O2 Del Method O2 Flow Rate 98.1 F 63 22 102/49 L 96 Nasal Cannula 3 08/01/23 11:43 08/01/23 11:43 08/01/23 11:43 08/01/23 11:43 08/01/23 11:43 08/01/23 11:43 08/01/23 11:43 Laboratory Results - last 24 hr 07/31/23 05:55: Urine Color Yellow, Urine Appearance Clear, Urine pH 6.5, Ur Specific [place] 1.015, Urine Protein Trace, Urine Glucose (UA) Negative, Urine Ketones Negative, Urine Blood Negative, Urine Nitrate Negative, Urine Bilirubin Negative, Urine Urobilinogen 2.0, Ur Leukocyte Esterase Negative, Urine RBC None, Urine WBC None, Ur Squamous Epith Cells Occasional, Urine Bacteria Trace 07/31/23 19:33: VBG pH 7.40, VBG pCO2 49.0, VBG pO2 42.8 H, VBG HCO3 29.5, VBG Total CO2 31.0 H, VBG O2 Saturation 81.5 H, VBG Base Excess 4.6 H, VBG Lactic Acid 0.9 07/31/23 20:46: Sodium 137, Potassium 4.2, Chloride 102, Carbon Dioxide 35 H, Anion Gap 4.2 L, BUN 11 D, Creatinine 0.60 L, Estimated Creat Clear 268, Estimated GFR 151, Est GFR ( Amer) 182, Glucose 125 H, Calcium 8.4, Total Bilirubin 0.3, AST 59, ALT 26, Alkaline Phosphatase 123, Total Protein 6.7, Albumin 3.3 L, Globulin 3.4 H, Albumin/Globulin Ratio 1.0 L, Salicylates < 1.0 L, Acetaminophen < 10 L, Plasma/Serum Alcohol < 10 07/31/23 21:07: WBC 16.4 H, RBC 3.37 L, Hgb 10.8 L, Hct 33.8 L, MCV 100.4 H, MCH 32.2 H, MCHC 32.1, RDW 12.8, Plt Count 345, MPV 8.6, Neut % (Auto) 88.3 H, Lymph % (Auto) 8.6 L, [place] % (Auto) 2.9, Eos % (Auto) 0.0 L, Baso % (Auto) 0.2, Neut # (Auto) 14.5 H, Lymph # (Auto) 1.4, [place] # (Auto) 0.5, Eos # (Auto) 0.0, Baso # (Auto) 0.0, Total Counted 100, Neutrophils % (Manual) 91 H, Lymphocytes % (Manual) 7 L, Monocytes % (Manual) 2, Platelet Estimate Normal, Hypochromasia 1+, Macrocytosis 1+ 08/01/23 05:55: Urine Opiates Screen Negative, Urine Methadone Screen Negative, Ur Barbituates Screen Negative, Ur Phencyclidine Scrn Negative, Ur Amphetamines Screen Negative, U Benzodiazepines Scrn Positive H, Urine Cocaine Screen Positive H, U Marijuana (THC) Screen Negative 08/01/23 07:25: Sodium 141, Potassium 4.5, Chloride 108 H, Carbon Dioxide 30, Anion Gap 7.5, BUN 12, Creatinine 0.70, Estimated Creat Clear 213, Estimated GFR 126, Est GFR ( Amer) 153, Glucose 111 H, Calcium 8.3 L, Magnesium 2.3, Total Bilirubin 0.3, AST 41 D, ALT 19 D, Alkaline Phosphatase 84, Total Protein 6.2 L, Albumin 2.9 L D, Globulin 3.3 H, Albumin/Globulin Ratio 0.9 L 08/01/23 08:08: WBC 14.8 H, RBC 3.35 L, Hgb 10.7 L, Hct 33.5 L, MCV 100.0 H, MCH 32.0 H, MCHC 32.0, RDW 12.9, Plt Count 360, MPV 8.7, Neut % (Auto) 83.4 H, Lymph % (Auto) 13.0, [place] % (Auto) 3.2, Eos % (Auto) 0.2, Baso % (Auto) 0.3, Neut # (Auto) 12.3 H, Lymph # (Auto) 1.9, [place] # (Auto) 0.5, Eos # (Auto) 0.0, Baso # (Auto) 0.0 08/01/23 : Lactate Dehydrogenase 387 D I & O for Labs for Last 24 Hours: Intake & Output 07/29/23 07/30/23 07/31/23 08/01/23 23:59 23:59 23:59 23:59 Intake Total 723 / 723 Output Total 275 / 275 Balance 448 / 448 Weight 232 lb 231 lb 14.4 oz Constitutional: Present severe distress Head: Present normocephalic and atraumatic ENT: Present normal exam, normal oropharynx and mucous membranes moist Neck: Present normal inspection and full ROM Respiratory: Present respiratory distress, rhonchi and able to speak in complete sentences; Absent wheezes or crackles Cardiac: Present S1/S2, Tachycardia and radial pulses present GI: Present soft and distention; Absent tenderness or guarding Skin: Present intact; Absent cyanosis or jaundice Neuro: Present alert, awake and oriented x 3 Extremities: Present normal inspection; Absent clubbing or cyanosis Psychiatric: Present normal affect and cooperative Meds Home Medications and Allergies Home Medications Medication Instructions Recorded Confirmed Type buprenorphine 8 mg-naloxone 2 mg 1 film sublingual BID 07/30/23 07/31/23 History sublingual film New Prescriptions to Start Prescriptions: Allergies Allergy/AdvReac Type Severity Reaction Status Date / Time No Known Allergies Allergy Verified 07/30/23 16:03 Results Laboratory Findings 08/01/23 08:08 08/01/23 07:25 Abnormal lab findings: Abnormal Labs 07/31/23 07/31/23 07/31/23 19:33 20:46 21:07 WBC 16.4 H RBC 3.37 L Hgb 10.8 L Hct 33.8 L MCV 100.4 H MCH 32.2 H Neut % (Auto) 88.3 H Lymph % (Auto) 8.6 L Eos % (Auto) 0.0 L Neut # (Auto) 14.5 H Neutrophils % (Manual) 91 H Lymphocytes % (Manual) 7 L VBG pO2 42.8 H VBG Total CO2 31.0 H VBG O2 Saturation 81.5 H VBG Base Excess 4.6 H Chloride Carbon Dioxide 35 H Anion Gap 4.2 L Creatinine 0.60 L Glucose 125 H Calcium Total Protein Albumin 3.3 L Globulin 3.4 H Albumin/Globulin Ratio 1.0 L Salicylates < 1.0 L Acetaminophen < 10 L U Benzodiazepines Scrn Urine Cocaine Screen 08/01/23 08/01/23 08/01/23 05:55 07:25 08:08 WBC 14.8 H RBC 3.35 L Hgb 10.7 L Hct 33.5 L MCV 100.0 H MCH 32.0 H Neut % (Auto) 83.4 H Lymph % (Auto) Eos % (Auto) Neut # (Auto) 12.3 H Neutrophils % (Manual) Lymphocytes % (Manual) VBG pO2 VBG Total CO2 VBG O2 Saturation VBG Base Excess Chloride 108 H Carbon Dioxide Anion Gap Creatinine Glucose 111 H Calcium 8.3 L Total Protein 6.2 L Albumin 2.9 L D Globulin 3.3 H Albumin/Globulin Ratio 0.9 L Salicylates Acetaminophen U Benzodiazepines Scrn Positive H Urine Cocaine Screen Positive H Assessment and Plan *Assessment and plan (1) ILD (interstitial lung disease): Status: Acute Category: Medical Code(s): J84.9 - Interstitial pulmonary disease, unspecified (2) Scleroderma: Status: Chronic Category: Medical Code(s): M34.9 - Systemic sclerosis, unspecified (3) Acute hypoxic respiratory failure: Status: Acute Category: Medical Code(s): J96.01 - Acute respiratory failure with hypoxia (4) Pneumonia: Status: Acute Category: Medical Code(s): J18.9 - Pneumonia, unspecified organism Plan Ms. Herrera is a 38-year-old presented to the ER with worsening respiratory distress 5 days prior to presentation for further evaluation and management. Patient presents tobacco and marijuana. He also snorts drugs. History of IV drug abuse. Patient admits snorting drugs unknown 48 hours prior to presentation with worsening respiratory distress. Patient does admit personal history of what appears to be a scleroderma when he was 11 years old through a skin biopsy. He does have a family history of few syndrome in his brother. CT on presentation bilateral diffuse groundglass opacities. No obvious pulmonary fibrosis noted though confounded by the groundglass opacities. No pleural effusions noted. CTA did not show any evidence of pulmonary embolism. COVID-19 and flu respiratory viral PCR panel negative. HIV nonreactive. Serum LDH within normal limits at 387. CRP upon admission significantly elevated at 277.8. Neutrophilic predominant leukocytosis upon admission. Improving. Currently receiving vancomycin and Zosyn pending culture results. Plan: Continue oxygen supplementation to maintain O2 saturation goal of 90% and above. Current 2 L. Wean antibiotics to ceftriaxone and azithromycin. Initiate methylprednisolone 40 every 12 hours Follow with RAPHAEL anticentromere SCL 70 and repeat CRP Follow with sputum culture, sputum induction today. Full respiratory viral PCR panel, urine strep and Legionella and urine histoplasma antigen
[2023-08-01] MEDS: CEFTRIAXONE SODIUM 1 GM in 0.9 % SODIUM CHLORIDE 50 ML IV (14:19)
[2023-08-01] MEDS: SODIUM CHLORIDE 3% 15ML NEB 3 ML IH (14:38)
[2023-08-01] MEDS: AZITHROMYCIN 500 MG in 0.9 % SODIUM CHLORIDE 250 ML 250 MG IV (15:23)
[2023-08-01] MEDS: METHYLPREDNISOLONE SOD SUCC 40MG VIAL 40 MG IV (15:33)
[2023-08-01] MEDS: MULTIVITAMIN TABLET 1 EACH PO (17:32)
--- NOTE | 2023-08-01 18:30 | EXP.ACUTE.PN ---
Subjective *Date: 08/01/23 *Time: 18:30 Interval history: Patient somnolent. Will wake and talk with him fall asleep. Significant other at bedside, states that he would not of left AMA had she been here to convince him to stay. Strong concern he may leave AMA based on his comments today. Does not want to be in the hospital for a long time. Does not have good insight into his current disease condition. Denies chest pain, nausea, vomiting. States he wants to go smoke and does not feel comfortable being cooped up in his room. Offered to let him walk the halls but informed him that we are non-smoking facility. Declining nicotine patch. Medical Exam Vital signs and Labs for Last 24 Hours: Vital Signs Temp Pulse Pulse Resp BP BP Pulse Ox 08/01/23 16:00 97.9 F 62 20 135/72 91 L 08/01/23 14:39 87 18 08/01/23 14:00 95 08/01/23 11:43 98.1 F 63 22 102/49 L 96 08/01/23 08:00 97.9 F 62 24 111/51 L 97 08/01/23 07:00 08/01/23 06:10 95 08/01/23 05:00 08/01/23 04:39 94 L 08/01/23 04:00 97.7 F 61 16 102/67 L 97 08/01/23 04:00 57 L 08/01/23 02:38 08/01/23 01:00 08/01/23 00:00 69 08/01/23 00:00 98.4 F 69 16 101/55 L 91 L 07/31/23 23:00 07/31/23 22:15 93 L 07/31/23 22:05 86 L 07/31/23 21:45 07/31/23 21:36 98.0 F 70 16 111/65 97 07/31/23 21:32 77 07/31/23 20:55 97.9 F 78 16 111/56 L 07/31/23 20:01 97 07/31/23 19:31 98.3 F 77 18 113/61 79 L O2 Del Method O2 Flow Rate 08/01/23 16:00 Room Air 08/01/23 14:39 08/01/23 14:00 Room Air 08/01/23 11:43 Nasal Cannula 3 08/01/23 08:00 Nasal Cannula 3 08/01/23 07:00 Nasal Cannula 3 08/01/23 06:10 Nasal Cannula 3 08/01/23 05:00 Nasal Cannula 4 08/01/23 04:39 Nasal Cannula 4 08/01/23 04:00 Nasal Cannula 5 08/01/23 04:00 08/01/23 02:38 Nasal Cannula 5 08/01/23 01:00 Nasal Cannula 5 08/01/23 00:00 08/01/23 00:00 07/31/23 23:00 Nasal Cannula 5 07/31/23 22:15 Nasal Cannula 5 07/31/23 22:05 Nasal Cannula 4 07/31/23 21:45 Nasal Cannula 4 07/31/23 21:36 Nasal Cannula 4 07/31/23 21:32 07/31/23 20:55 Nasal Cannula 4 07/31/23 20:01 Nasal Cannula 4 07/31/23 19:31 Room Air Intake and Output 08/01/23 08/01/23 08/01/23 07:59 15:59 23:59 Intake Total 553 / 893 340 / 893 Output Total 275 / 275 Balance 278 / 618 340 / 618 Intake: Intake, Oral Amount 340 / 340 Intake, Total IV Amount 553 / 553 0.9 % Sodium Chloride 1000ML 1, 103 / 103 000 ml @ 50 mls/hr IV .Q20H [facility] Rx#:[id number] Piperacillin/Tazo 4.5 gm In 0.9 200 / 200 % Sodium Chloride 100 ml @ 200 mls/hr IV Q6H [facility] Rx#:[id number] Vancomycin HCl 2,500 mg In 0.9 250 / 250 % Sodium Chloride 250 ml @ 125 mls/hr IV ONCE ONE Rx#:[id number] Output: Output, Urine Amount 275 / 275 Other: Number of Voids 1 Number of Unmeasured Voids 1 Weight 105.188 kg Patient Weight 08/01/23 23:59 Weight 105.188 kg Laboratory Results - last 24 hr 07/31/23 05:55: Urine Color Yellow, Urine Appearance Clear, Urine pH 6.5, Ur Specific [place] 1.015, Urine Protein Trace, Urine Glucose (UA) Negative, Urine Ketones Negative, Urine Blood Negative, Urine Nitrate Negative, Urine Bilirubin Negative, Urine Urobilinogen 2.0, Ur Leukocyte Esterase Negative, Urine RBC None, Urine WBC None, Ur Squamous Epith Cells Occasional, Urine Bacteria Trace 07/31/23 19:33: VBG pH 7.40, VBG pCO2 49.0, VBG pO2 42.8 H, VBG HCO3 29.5, VBG Total CO2 31.0 H, VBG O2 Saturation 81.5 H, VBG Base Excess 4.6 H, VBG Lactic Acid 0.9 07/31/23 20:46: Sodium 137, Potassium 4.2, Chloride 102, Carbon Dioxide 35 H, Anion Gap 4.2 L, BUN 11 D, Creatinine 0.60 L, Estimated Creat Clear 268, Estimated GFR 151, Est GFR ( Amer) 182, Glucose 125 H, Calcium 8.4, Total Bilirubin 0.3, AST 59, ALT 26, Alkaline Phosphatase 123, Total Protein 6.7, Albumin 3.3 L, Globulin 3.4 H, Albumin/Globulin Ratio 1.0 L, Salicylates < 1.0 L, Acetaminophen < 10 L, Plasma/Serum Alcohol < 10 07/31/23 21:07: WBC 16.4 H, RBC 3.37 L, Hgb 10.8 L, Hct 33.8 L, MCV 100.4 H, MCH 32.2 H, MCHC 32.1, RDW 12.8, Plt Count 345, MPV 8.6, Neut % (Auto) 88.3 H, Lymph % (Auto) 8.6 L, [place] % (Auto) 2.9, Eos % (Auto) 0.0 L, Baso % (Auto) 0.2, Neut # (Auto) 14.5 H, Lymph # (Auto) 1.4, [place] # (Auto) 0.5, Eos # (Auto) 0.0, Baso # (Auto) 0.0, Total Counted 100, Neutrophils % (Manual) 91 H, Lymphocytes % (Manual) 7 L, Monocytes % (Manual) 2, Platelet Estimate Normal, Hypochromasia 1+, Macrocytosis 1+ 08/01/23 05:55: Urine Opiates Screen Negative, Urine Methadone Screen Negative, Ur Barbituates Screen Negative, Ur Phencyclidine Scrn Negative, Ur Amphetamines Screen Negative, U Benzodiazepines Scrn Positive H, Urine Cocaine Screen Positive H, U Marijuana (THC) Screen Negative 08/01/23 07:25: Sodium 141, Potassium 4.5, Chloride 108 H, Carbon Dioxide 30, Anion Gap 7.5, BUN 12, Creatinine 0.70, Estimated Creat Clear 213, Estimated GFR 126, Est GFR ( Amer) 153, Glucose 111 H, Calcium 8.3 L, Magnesium 2.3, Total Bilirubin 0.3, AST 41 D, ALT 19 D, Alkaline Phosphatase 84, Total Protein 6.2 L, Albumin 2.9 L D, Globulin 3.3 H, Albumin/Globulin Ratio 0.9 L 08/01/23 08:08: WBC 14.8 H, RBC 3.35 L, Hgb 10.7 L, Hct 33.5 L, MCV 100.0 H, MCH 32.0 H, MCHC 32.0, RDW 12.9, Plt Count 360, MPV 8.7, Neut % (Auto) 83.4 H, Lymph % (Auto) 13.0, [place] % (Auto) 3.2, Eos % (Auto) 0.2, Baso % (Auto) 0.3, Neut # (Auto) 12.3 H, Lymph # (Auto) 1.9, [place] # (Auto) 0.5, Eos # (Auto) 0.0, Baso # (Auto) 0.0 08/01/23 11:28: Chlamy pneumoniae PCR TNP, Adenovirus (PCR) Not detected, B. pertussis DNA (PCR) TNP, Coronavirus OC43 (PCR) Not detected, Coronavirus HKU1 (PCR) Not detected, Coronavirus 229E (PCR) Not detected, SARS-CoV-2 (PCR) Not detected, Coronavirus NL63 (PCR) Not detected, Human Metapneumovir PCR Not detected, Influenza A (H1) PCR Not detected, Influ A (H1N1/09) PCR Not detected, Influenza A (H3) PCR Not detected, Influenza Type A (PCR) Not detected, Influenza Type B (PCR) Not detected, M. pneumoniae (PCR) TNP, Parainfluenza 1 (PCR) Not detected, Parainfluenza 2 (PCR) Not detected, Parainfluenza 3 (PCR) Not detected, Parainfluenza 4 (PCR) Not detected, RSV (PCR) Not detected, Entero/Rhino (PCR) Not detected 08/01/23 : Lactate Dehydrogenase 387 D I & O for Labs for Last 24 Hours: Intake & Output 07/29/23 07/30/23 07/31/23 08/01/23 23:59 23:59 23:59 23:59 Intake Total 893 / 893 Output Total 275 / 275 Balance 618 / 618 Weight 105.233 kg 105.188 kg Constitutional: Present no acute distress, obese, chronically ill appearing and disheveled; Absent cooperative Head: Present atraumatic and normocephalic ENT: Present normal exam Comment:: Poor dentition Neck: Present normal inspection Respiratory: Present crackles and normal respiratory effort; Absent rhonchi or wheezes Cardiac: Present Reg Rate and Rhythm GI: Present soft and normal bowel sounds; Absent distention or tenderness Rectal (male): Present deferred Extremities: Present normal inspection and full ROM Skin: Present intact; Absent erythema Neuro: Present Grossly Intact, alert, awake, oriented x 3 and moves all extremities Comment:: Falls asleep easily but will wake and is oriented x 3 Assessment and Plan *Assessment and plan (1) ILD (interstitial lung disease): Status: Acute Category: Medical Code(s): J84.9 - Interstitial pulmonary disease, unspecified (2) Altered mental status: Status: Acute Category: Medical Code(s): R41.82 - Altered mental status, unspecified (3) Substance abuse: Status: Acute Category: Medical Code(s): F19.10 - Other psychoactive substance abuse, uncomplicated (4) Pneumonia: Status: Acute Category: Medical Code(s): J18.9 - Pneumonia, unspecified organism (5) Respiratory failure: Status: Acute Category: Medical Code(s): J96.90 - Respiratory failure, unspecified, unspecified whether with hypoxia or hypercapnia (6) Scleroderma: Status: Chronic Category: Medical Code(s): M34.9 - Systemic sclerosis, unspecified Plan 38-year-old male with no apparent no medical history, other than IV drug use, presented to ED with concern for several days of shortness of breath, cough, congestion, bloody nasal discharge, and hemoptysis. Patient stated went to a music concert last Saturday and had something hard for fun he snorted it. on arrival patient presented hypoxic, tachycardic met sepsis criteria, went into fluid resuscitation. started on broad antibiotioc. CT of chest obtained last admission with multifocal pneumonia concerning for pneumonitis, pneumonia, inflammation. Continuing antibiotics at this time. Pulm consult today. Continues to require inpatient management. Problems addressed as follows: -Sepsis with Acute hypoxic respiratory failure secondary to acquired pneumoania. to r/o pnemonitis secondary to drug aspiration. polysubstance abuse: Patient readmitted after leaving AMA. Resumed IV antibiotics with Zosyn and vancomycin will discontinue, see recs below Continue supplemental oxygen with goal saturation greater than percent. Wean for goal saturation greater 90%. Currently on 4 L Pulmonology consulted, appreciate their assistance in care. Labs still pending from last admission including RAPHAEL, sputum and blood cultures HIV negative White cell count 14.8 this morning. Repeat CBC, CMP, magnesium ordered for the morning Of note, has a history of scleroderma Discussed case with pulmonology, recommend weaning antibiotics to ceftriaxone and azithromycin. Initiate methylprednisolone 40 every 12 hours Follow with RAPHAEL anticentromere SCL 70 and repeat CRP Follow with sputum culture, sputum induction today. Full respiratory panel negative. urine strep and Legionella and urine histoplasma antigen pending Polysubstance abuse Encephalopathy -Likely toxic due to substance abuse. -UDS positive for benzos and cocaine - Previously expressed interest in detox program. CM/social work administrator consult to assist with D/c plan -Reports taking opiates this past weekend. Has been prescribed morphine but does not want to take it -Currently on CIWA protocol given agitation and concern for benzodiazepine dependence/addiction/abuse BNP elevated: Echo obtained yesterday. Echo with normal EF. Mild RV dilation and mild reduction in RV function. No clear evidence of vegetations or valvular disease. Does not appear to have inflammation of myocardium. No complaint of chest pain at this time however difficult to obtain much review of systems from patient Lovenox for dvt ppx. protonix Full code
--- NOTE | 2023-08-01 19:10 | PC.NURSE ---
PAtient has been a&ox4. PAtient has been refusing to wear tele box and O2 monitor. MD and devulcanizer charger aware. Patient room air saturation 95%
--- NOTE | 2023-08-01 19:19 | P.HP_ITS ---
History of Present Illness *Admission Date: 08/01/23 *Reason for visit:: Sob *History of present illness: This is a 38-year-old male with no apparent no medical history, other than IV drug use, presented to ED with concern for several days of shortness of breath, cough, congestion, bloody nasal discharge, and hemoptysis. Patient stated went to a music concert last Saturday and had something hard for fun he snorted it. he does not know what it was. He also notes that he has had full COVID and flu exposure, so he thought maybe he had an upper respiratory infection. He also complains that he is having pain on the right side of his chest, which he thinks is from coughing and pulling a muscle. He notes he has had fevers and chills as well as left lower extremity edema as well. He denies any abdominal pain, nausea, vomiting, changes in bowel movements, rashes, lesions, or other concerns. He denies any history of blood clots or clotting disorders. He also denies any history of endocarditis. patient decided t go AMA. became hypoxic right after arriving home. came back to ER. Readmitted for treatment and management [facility] Disclaimer: The information contained in this section may have been updated after the patient was seen, as this information can be updated by other users. Medical History (Updated 08/01/23 @ 12:34 by Felix Cosby MD) ILD (interstitial lung disease) Scleroderma Social History (Updated 07/31/23 @ 21:35 by Padmini Ames RN) Smoking Status: Current every day smoker alcohol intake: former substance use type: marijuana, crack/cocaine and IV drugs current occupational status: unemployed Travel in the last 8 weeks: None household members: spouse Review of Systems Review of Systems Review of systems:: pertinent systems reviewed and negative unless documented below Meds Home Medications and Allergies Home Medications Medication Instructions Recorded Confirmed Type buprenorphine 8 mg-naloxone 2 mg 1 film sublingual BID 07/30/23 07/31/23 History sublingual film New Prescriptions to Start Prescriptions: Allergies Allergy/AdvReac Type Severity Reaction Status Date / Time No Known Allergies Allergy Verified 07/30/23 16:03 Exam Data for Last 24 hours Vital signs and Labs for Last 24 Hours: Temp Pulse Resp BP Pulse Ox O2 Del Method O2 Flow Rate 97.9 F 62 20 135/72 91 L Room Air 3 08/01/23 16:00 08/01/23 16:00 08/01/23 16:00 08/01/23 16:00 08/01/23 16:00 08/01/23 16:00 08/01/23 11:43 Laboratory Results - last 24 hr 07/31/23 05:55: Urine Color Yellow, Urine Appearance Clear, Urine pH 6.5, Ur Specific [place] 1.015, Urine Protein Trace, Urine Glucose (UA) Negative, Urine Ketones Negative, Urine Blood Negative, Urine Nitrate Negative, Urine Bilirubin Negative, Urine Urobilinogen 2.0, Ur Leukocyte Esterase Negative, Urine RBC None, Urine WBC None, Ur Squamous Epith Cells Occasional, Urine Bacteria Trace 07/31/23 19:33: VBG pH 7.40, VBG pCO2 49.0, VBG pO2 42.8 H, VBG HCO3 29.5, VBG Total CO2 31.0 H, VBG O2 Saturation 81.5 H, VBG Base Excess 4.6 H, VBG Lactic Acid 0.9 07/31/23 20:46: Sodium 137, Potassium 4.2, Chloride 102, Carbon Dioxide 35 H, Anion Gap 4.2 L, BUN 11 D, Creatinine 0.60 L, Estimated Creat Clear 268, Estimated GFR 151, Est GFR ( Amer) 182, Glucose 125 H, Calcium 8.4, Total Bilirubin 0.3, AST 59, ALT 26, Alkaline Phosphatase 123, Total Protein 6.7, Albumin 3.3 L, Globulin 3.4 H, Albumin/Globulin Ratio 1.0 L, Salicylates < 1.0 L , Acetaminophen < 10 L, Plasma/Serum Alcohol < 10 07/31/23 21:07: WBC 16.4 H, RBC 3.37 L, Hgb 10.8 L, Hct 33.8 L, MCV 100.4 H, MCH 32.2 H, MCHC 32.1, RDW 12.8, Plt Count 345, MPV 8.6, Neut % (Auto) 88.3 H, Lymph % (Auto) 8.6 L, [place] % (Auto) 2.9, Eos % (Auto) 0.0 L, Baso % (Auto) 0.2, Neut # (Auto) 14.5 H, Lymph # (Auto) 1.4, [place] # (Auto) 0.5, Eos # (Auto) 0.0, Baso # (Auto) 0.0, Total Counted 100, Neutrophils % (Manual) 91 H, Lymphocytes % (Manual) 7 L, Monocytes % (Manual) 2, Platelet Estimate Normal, Hypochromasia 1+, Macrocytosis 1+ 08/01/23 05:55: Urine Opiates Screen Negative, Urine Methadone Screen Negative, Ur Barbituates Screen Negative, Ur Phencyclidine Scrn Negative, Ur Amphetamines Screen Negative, U Benzodiazepines Scrn Positive H, Urine Cocaine Screen Positive H, U Marijuana (THC) Screen Negative 08/01/23 07:25: Sodium 141, Potassium 4.5, Chloride 108 H, Carbon Dioxide 30, Anion Gap 7.5, BUN 12, Creatinine 0.70, Estimated Creat Clear 213, Estimated GFR 126, Est GFR ( Amer) 153, Glucose 111 H, Calcium 8.3 L, Magnesium 2.3, Total Bilirubin 0.3, AST 41 D, ALT 19 D, Alkaline Phosphatase 84, Total Protein 6.2 L, Albumin 2.9 L D, Globulin 3.3 H, Albumin/Globulin Ratio 0.9 L 08/01/23 08:08: WBC 14.8 H, RBC 3.35 L, Hgb 10.7 L, Hct 33.5 L, MCV 100.0 H, MCH 32.0 H, MCHC 32.0, RDW 12.9, Plt Count 360, MPV 8.7, Neut % (Auto) 83.4 H, Lymph % (Auto) 13.0, [place] % (Auto) 3.2, Eos % (Auto) 0.2, Baso % (Auto) 0.3, Neut # (Auto) 12.3 H, Lymph # (Auto) 1.9, [place] # (Auto) 0.5, Eos # (Auto) 0.0, Baso # (Auto) 0.0 08/01/23 11:28: Chlamy pneumoniae PCR TNP, Adenovirus (PCR) Not detected, B. pertussis DNA (PCR) TNP, Coronavirus OC43 (PCR) Not detected, Coronavirus HKU1 (PCR) Not detected, Coronavirus 229E (PCR) Not detected, SARS-CoV-2 (PCR) Not detected, Coronavirus NL63 (PCR) Not detected, Human Metapneumovir PCR Not detected, Influenza A (H1) PCR Not detected, Influ A (H1N1/09) PCR Not detected, Influenza A (H3) PCR Not detected, Influenza Type A (PCR) Not detected, Influenza Type B (PCR) Not detected, M. pneumoniae (PCR) TNP, Parainfluenza 1 (PCR) Not detected, Parainfluenza 2 (PCR) Not detected, Parainfluenza 3 (PCR) Not detected, Parainfluenza 4 (PCR) Not detected, RSV (PCR) Not detected, Entero/Rhino (PCR) Not detected 08/01/23 : Lactate Dehydrogenase 387 D I & O for Last 24 hours: Intake & Output 07/29/23 07/30/23 07/31/23 08/01/23 23:59 23:59 23:59 23:59 Intake Total 1063 / 1063 Output Total 275 / 275 Balance 788 / 788 Weight 105.233 kg 105.188 kg Constitutional Constitutional: mild distress, cooperative and somnolent *Routine HEENT Exam Head: Present normocephalic and atraumatic Eye: Present EOMI, PERRL and normal accommodation ENT: Present mucous membranes dry *Routine Neck Exam Neck: Present supple, full ROM and trachea midline *Routine Respiratory Exam Respiratory: Present CTA bilaterally, crackles, diminished air movement and normal respiratory effort *Routine Cardiovascular Exam Cardiovascular: Present RRR, Normal S1, Normal S2 and tachycardia *Routine Abdominal Exam Abdominal: Present soft and normoactive bowel sounds; Absent tenderness, distended or mass *Routine Rectal Exam Rectal:: deferred *Routine Genitalia Exam Genitalia:: deferred *Routine Extremities Exam Extremities: Present full ROM and pulses intact; Absent cyanosis, clubbing or edema *Routine Skin Exam Skin: Present petechiae; Absent cyanosis, erythema or rash *Routine Neurological Exam Neurological: Present alert, oriented X3, moving all extremities and normal speech Routine Psychiatric Exam Psychiatric: Present good insight H&P: Result Imaging and Cardiology Chest x-ray: Status: image reviewed by me, Preliminary report and final report EKG: Status: image reviewed by me, Preliminary report and final report Assessment and Plan *Assessment and plan (1) Acute hypoxic respiratory failure: Status: Acute Category: Medical Code(s): J96.01 - Acute respiratory failure with hypoxia (2) Sepsis due to pneumonia: Status: Acute Category: Medical Code(s): J18.9 - Pneumonia, unspecified organism; A41.9 - Sepsis, unspecified organism (3) Drug-induced pneumonitis: Status: Acute Category: Medical Code(s): J98.4 - Other disorders of lung; T50.905A - Adverse effect of unspecified drugs, medicaments and biological substances, initial encounter (4) Polysubstance abuse: Status: Acute Category: Medical Code(s): F19.10 - Other psychoactive substance abuse, uncomplicated (5) Hypokalemia: Status: Acute Category: Medical Code(s): E87.6 - Hypokalemia (6) Elevated brain natriuretic peptide (BNP) level: Status: Acute Category: Medical Code(s): R79.89 - Other specified abnormal findings of blood chemistry Plan 38-year-old male with no apparent no medical history, other than IV drug use, presented to ED with concern for several days of shortness of breath, cough, congestion, bloody nasal discharge, and hemoptysis. Patient stated went to a music concert last Saturday and had something hard for fun he snorted it. on arrival patient presented hypoxic, tachycardic met sepsis criteria, went into fluid resuscitation. started on broad antibiotioc. CT of chest obtained. imaging reviewed. consistent with multifocal pneumonia. labs are remarkable for leukocytocys, electrolytes disturbances. elevated BNP. discussed with ED for admission. Plan as follow: -Sepsis with Acute hypoxic respiratory failure secondary to acquired pneumoania. to r/o pnemonitis secondary to drug aspiration. polysubstance abuse: Admit patient. start continuous monitoring for sepsis and organ dysfuntion pulmonology consult monitor for O2 sat. currently 3L NC. wean off \Decadron 10mg IV given. Continue with 6mg PO daily. May decrease dose as saturation improve started on vanco and zoxyn. Pending culture respiratory to assist with care. repeat labs in the morning. Watch for renal function Cont IV sepsis bolus. switch to maintenance after. expressed interest for detox program. CM/social media editor consult to assist with D/c plan -Hypokalemia: replace K+ PO. repeat CMP in the [facility] watch for others electrolytes imabalances. cardiac monitoring BNP elevated: Obtain ECHO in the morning to rule out myocarditis. Lovenox for dvt ppx. On protonix Full code,. Plan discussed with patient and family at bedside. they agreed. Rounded on patient after nurse practitioner. Personally examined and interviewed patient. Agree with exam findings and care plan as documented.
[2023-08-01] MEDS: PANTOPRAZOLE 40MG TABLET 40 MG PO (21:55)
[2023-08-02] VITALS: BP 137/78; PULSE 60; RESP 16; TEMP 36.9; O2SAT 95
[2023-08-02] MEDS: 0.9 % SODIUM CHLORIDE 1000ML 1,000 ML 50 ML IV (00:11)
[2023-08-02] MEDS: METHYLPREDNISOLONE SOD SUCC 40MG VIAL 40 MG IV (00:11)
[2023-08-02 04:00] VITALS: BP 149/93; PULSE 69; RESP 17; TEMP 37; O2SAT 96; BMI 33.2
--- NOTE | 2023-08-02 07:26 | PC.NURSE ---
attempted to draw morning labs from iv site but was unsuccessful. pt is refusing additional sticks for blood draw at this time.
[2023-08-02 08:00] VITALS: BP 143/71; PULSE 74; RESP 18; TEMP 36.7; O2SAT 98
[2023-08-02] MEDS: THIAMINE 100MG TABLET 100 MG PO (08:47)
[2023-08-02] MEDS: BUPRENORPHINE/NALOXONE 8MG/2MG ODT 1 EACH SL (08:47)
[2023-08-02] MEDS: FOLIC ACID 1MG TABLET 1 MG PO (08:47)
--- NOTE | 2023-08-02 09:34 | EXP.PULM.PN ---
Subjective *Date: 08/02/23 *Time: 10:53 Interval history: No acute respiratory events overnight Pulmonology Exam Inpatient Vital signs and Labs for Last 24 Hours: Temp Pulse Resp BP Pulse Ox O2 Del Method O2 Flow Rate 98.1 F 74 18 143/71 H 98 Room Air 3 08/02/23 08:00 08/02/23 08:00 08/02/23 08:00 08/02/23 08:00 08/02/23 08:00 08/02/23 08:00 08/01/23 11:43 Laboratory Results - last 24 hr 08/01/23 05:55: Urine Opiates Screen Negative, Urine Methadone Screen Negative, Ur Barbituates Screen Negative, Ur Phencyclidine Scrn Negative, Ur Amphetamines Screen Negative, U Benzodiazepines Scrn Positive H, Urine Cocaine Screen Positive H, U Marijuana (THC) Screen Negative 08/01/23 11:28: Chlamy pneumoniae PCR TNP, Adenovirus (PCR) Not detected, B. pertussis DNA (PCR) TNP, Coronavirus OC43 (PCR) Not detected, Coronavirus HKU1 (PCR) Not detected, Coronavirus 229E (PCR) Not detected, SARS-CoV-2 (PCR) Not detected, Coronavirus NL63 (PCR) Not detected, Human Metapneumovir PCR Not detected, Influenza A (H1) PCR Not detected, Influ A (H1N1/09) PCR Not detected, Influenza A (H3) PCR Not detected, Influenza Type A (PCR) Not detected, Influenza Type B (PCR) Not detected, M. pneumoniae (PCR) TNP, Parainfluenza 1 (PCR) Not detected, Parainfluenza 2 (PCR) Not detected, Parainfluenza 3 (PCR) Not detected, Parainfluenza 4 (PCR) Not detected, RSV (PCR) Not detected, Entero/Rhino (PCR) Not detected 08/01/23 : Lactate Dehydrogenase 387 D I & O for Labs for Last 24 Hours: Intake & Output 07/30/23 07/31/23 08/01/23 08/02/23 23:59 23:59 23:59 23:59 Intake Total 1063 / 1597 774 / 774 Output Total 275 / 275 0 / 0 Balance 788 / 1322 774 / 774 Weight 232 lb 231 lb 14.4 oz 231 lb 14.397 oz Constitutional: Present severe distress Head: Present normocephalic and atraumatic ENT: Present normal exam, normal oropharynx and mucous membranes moist Neck: Present normal inspection and full ROM Respiratory: Present able to speak in complete sentences; Absent respiratory distress, wheezes or crackles Cardiac: Present S1/S2, Tachycardia and radial pulses present GI: Present soft and distention; Absent tenderness or guarding Skin: Present intact; Absent cyanosis or jaundice Neuro: Present alert, awake and oriented x 3 Extremities: Present normal inspection; Absent clubbing or cyanosis Psychiatric: Present normal affect and cooperative Assessment and Plan *Assessment and plan (1) ILD (interstitial lung disease): Status: Acute Category: Medical Code(s): J84.9 - Interstitial pulmonary disease, unspecified (2) Scleroderma: Status: Chronic Category: Medical Code(s): M34.9 - Systemic sclerosis, unspecified (3) Acute hypoxic respiratory failure: Status: Acute Category: Medical Code(s): J96.01 - Acute respiratory failure with hypoxia (4) Pneumonia: Status: Acute Category: Medical Code(s): J18.9 - Pneumonia, unspecified organism Plan Ms. Herrera is a 38-year-old presented to the ER with worsening respiratory distress 5 days prior to presentation for further evaluation and management. Patient presents tobacco and marijuana. He also snorts drugs. History of IV drug abuse. Patient admits snorting drugs unknown 48 hours prior to presentation with worsening respiratory distress. Patient does admit personal history of what appears to be a scleroderma when he was 11 years old through a skin biopsy. He does have a family history of few syndrome in his brother. CT on presentation bilateral diffuse groundglass opacities. No obvious pulmonary fibrosis noted though confounded by the groundglass opacities. No pleural effusions noted. CTA did not show any evidence of pulmonary embolism. COVID-19 and flu respiratory viral PCR panel negative. HIV nonreactive. Serum LDH within normal limits at 387. CRP upon admission significantly elevated at 277.8. Neutrophilic predominant leukocytosis upon admission. Improving. Was initiated on vancomycin and Zosyn upon admission, antibiotics immunosuppression azithromycin. Plan: Autoimmune workup pending. Full respiratory viral PCR panel negative. Improving respiratory status, on room air saturating 96% this morning. Plan: Antibiotics can be weaned to cefdinir to complete a total of 5-day course upon discharge Steroids can be weaned to prednisone 60 mg daily x 10 days. Will follow the patient in 5 weeks post discharge. Follow with RAPHAEL anticentromere SCL 70 and repeat CRP Follow with sputum culture, sputum induction today. F/U urine strep and Legionella and urine histoplasma antigen # Thank you for involving pulmonary in this patient care. Will follow the patient in pulmonary clinic 5 days post discharge. He can be discharged home on cefdinir to complete total of 5-day course and prednisone 60 mg daily to complete a total of 10-day course upon discharge. Will also perform 6-minute walk testing prior to discharge.
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
[2023-08-02 11:10] VITALS: BP 141/85; PULSE 58; RESP 18; TEMP 36.8; O2SAT 98
[2023-08-02] MEDS: PARoxetine 20MG TABLET 20 MG PO (11:56)
--- NOTE | 2023-08-02 12:59 | EXP.DC.SUM ---
General Admission date:: 07/31/23 Discharge date: 08/02/23 HPI HPI HPI: This is a 38-year-old male with no apparent no medical history, other than IV drug use, presented to ED with concern for several days of shortness of breath, cough, congestion, bloody nasal discharge, and hemoptysis. Patient stated went to a music concert last Saturday and had something hard for fun he snorted it. he does not know what it was. He also notes that he has had full COVID and flu exposure, so he thought maybe he had an upper respiratory infection. He also complains that he is having pain on the right side of his chest, which he thinks is from coughing and pulling a muscle. He notes he has had fevers and chills as well as left lower extremity edema as well. He denies any abdominal pain, nausea, vomiting, changes in bowel movements, rashes, lesions, or other concerns. He denies any history of blood clots or clotting disorders. He also denies any history of endocarditis. patient decided t go AMA. became hypoxic right after arriving home. came back to ER. Readmitted for treatment and management Hospital Course Hospital Course Hospital Course: 38-year-old male with no apparent no medical history, other than IV drug use, presented to ED with concern for several days of shortness of breath, cough, congestion, bloody nasal discharge, and hemoptysis. Patient stated went to a music concert last Saturday and had something hard for fun he snorted it. on arrival patient presented hypoxic, tachycardic met sepsis criteria, went into fluid resuscitation. started on broad antibiotioc. CT of chest obtained last admission with multifocal pneumonia concerning for pneumonitis, pneumonia, inflammation. Initiated on IV antibiotics. Did well. Able to wean to room air. Pulmonology assisting with care. Will transition oral antibiotics and steroids to complete therapy. Follow-up closely with pulmonology next week. Stable for discharge home for continued outpatient management. Strongly encourage patient to keep his follow-ups given concern for progression of lung inflammation and possible negative outcomes. Patient stated understanding. Problems addressed as follows: -Sepsis with Acute hypoxic respiratory failure secondary to acquired pneumoania. to r/o pnemonitis secondary to drug aspiration. polysubstance abuse: Patient was readmitted after leaving AMA. Initiated on vancomycin and Zosyn. Able to wean from 4 L oxygen to room air. On room air for over 24 hours prior to discharge home. Pulmonology was consulted and assisted with care. Labs were obtained including RPAHAEL, sputum culture, anticentromere SCL 70. Initiated on IV methylprednisolone 40 mg every 12 hours. Showing improvement clinically. Of note HIV and full respiratory panel were negative. Given patient's improvement, transitioned to cefdinir to complete 5 days of antibiotics. Will transition oral prednisone 60 mg daily for 10 days. Follow-up next week with pulmonology for further management. Polysubstance abuse Encephalopathy -Likely toxic due to substance abuse. Improved during admission. UDS was positive for benzodiazepines and cocaine. Psychiatry evaluated patient. Recommended treatment for anxiety. Initiated on Paxil. Recommend follow-up as an outpatient to further discuss polysubstance abuse and detox if patient interested. No withdrawal signs during admission. Stable to discharge home. -Encouraged to resume Suboxone therapy BNP elevated: Echo obtained yesterday. Echo with normal EF. Mild RV dilation and mild reduction in RV function. No clear evidence of vegetations or valvular disease. Does not appear to have inflammation of myocardium. No complaint of chest pain at this time however difficult to obtain much review of systems from patient Patient denies any chest pain, shortness of breath, nausea, vomiting on day of discharge. Family at bedside with whom he will go home. Stressed the importance of follow-up appointments. Patient and family state understanding. Total time spent on discharge 32 minutes in counseling, documentation, chart review, and direct care with patient. Exam Data for Last 24 hours Vital signs and Labs for Last 24 Hours: Temp Pulse Resp BP Pulse Ox O2 Del Method O2 Flow Rate 98.3 F 58 L 18 141/85 H 98 Room Air 3 08/02/23 11:10 08/02/23 11:10 08/02/23 11:10 08/02/23 11:10 08/02/23 11:10 08/02/23 11:10 08/01/23 11:43 Laboratory Results - last 24 hr 08/01/23 11:28: Chlamy pneumoniae PCR TNP, Adenovirus (PCR) Not detected, B. pertussis DNA (PCR) TNP, Coronavirus OC43 (PCR) Not detected, Coronavirus HKU1 (PCR) Not detected, Coronavirus 229E (PCR) Not detected, SARS-CoV-2 (PCR) Not detected, Coronavirus NL63 (PCR) Not detected, Human Metapneumovir PCR Not detected, Influenza A (H1) PCR Not detected, Influ A (H1N1/09) PCR Not detected, Influenza A (H3) PCR Not detected, Influenza Type A (PCR) Not detected, Influenza Type B (PCR) Not detected, M. pneumoniae (PCR) TNP, Parainfluenza 1 (PCR) Not detected, Parainfluenza 2 (PCR) Not detected, Parainfluenza 3 (PCR) Not detected, Parainfluenza 4 (PCR) Not detected, RSV (PCR) Not detected, Entero/Rhino (PCR) Not detected I & O for Last 24 hours: Intake & Output 07/30/23 07/31/23 08/01/23 08/02/23 23:59 23:59 23:59 23:59 Intake Total 1063 / 1597 1044 / 1044 Output Total 275 / 275 0 / 0 Balance 788 / 1322 1044 / 1044 Weight 105.233 kg 105.188 kg 105.188 kg Constitutional Constitutional: no acute distress, obese, chronically ill appearing, disheveled and agitated *Routine HEENT Exam Head: Present normocephalic and atraumatic Eye: Present EOMI ENT: Present mucous membranes moist *Routine Neck Exam Neck: Present supple *Routine Respiratory Exam Respiratory: Present crackles; Absent respiratory distress, rhonchi or wheezes *Routine Cardiovascular Exam Cardiovascular: Present RRR *Routine Abdominal Exam Abdominal: Present soft *Routine Rectal Exam Patient deferred: visual exam *Routine Exam Patient deferred: penile exam *Routine Extremities Exam Extremities: Absent cyanosis *Routine Skin Exam Skin: Present intact *Routine Neurological Exam Neurological: Present alert, oriented X3 and moving all extremities; Absent altered mental status Routine Psychiatric Exam Psychiatric: Present normal affect and cooperative; Absent suicidal ideation Results Data Completed and Pending Labs on day of discharge: Labs from last 24 hours 08/01/23 11:28 Chlamy pneumoniae PCR TNP Adenovirus (PCR) Not detected B. pertussis DNA (PCR) TNP Coronavirus OC43 (PCR) Not detected Coronavirus HKU1 (PCR) Not detected Coronavirus 229E (PCR) Not detected SARS-CoV-2 (PCR) Not detected Coronavirus NL63 (PCR) Not detected Human Metapneumovir PCR Not detected Influenza A (H1) PCR Not detected Influ A (H1N1/09) PCR Not detected Influenza A (H3) PCR Not detected Influenza Type A (PCR) Not detected Influenza Type B (PCR) Not detected M. pneumoniae (PCR) TNP Parainfluenza 1 (PCR) Not detected Parainfluenza 2 (PCR) Not detected Parainfluenza 3 (PCR) Not detected Parainfluenza 4 (PCR) Not detected RSV (PCR) Not detected Entero/Rhino (PCR) Not detected DS: Diagnosis Discharge Diagnosis (1) ILD (interstitial lung disease): Status: Acute Code(s): J84.9 - Interstitial pulmonary disease, unspecified (2) Scleroderma: Status: Chronic Code(s): M34.9 - Systemic sclerosis, unspecified (3) Acute hypoxic respiratory failure: Status: Acute Code(s): J96.01 - Acute respiratory failure with hypoxia (4) Pneumonia: Status: Acute Code(s): J18.9 - Pneumonia, unspecified organism Meds Home Medications and Allergies Home Medications Medication Instructions Recorded Confirmed Type buprenorphine 8 mg-naloxone 2 mg 1 film sublingual BID 07/30/23 07/31/23 History sublingual film cefdinir 300 mg capsule 300 mg PO BID 3 days #6 caps 08/02/23 Rx paroxetine HCl 20 mg tablet 20 mg PO DAILY 30 days #30 tabs 08/02/23 Rx prednisone 20 mg tablet 60 mg (3 x 20 mg) PO DAILY 10 days 08/02/23 Rx #30 tabs New Prescriptions to Start Prescriptions: Marty Graves paroxetine HCl Marty Basurto prednisone Marty Basurto Allergies Allergy/AdvReac Type Severity Reaction Status Date / Time No Known Allergies Allergy Verified 07/30/23 16:03 Discharge Plan Disposition Patient Disposition: Home, Self-Care Condition: Fair Discharge Order Discharge Orders: Discharge Order (Routine); Ordered 08/02/23 Ordered By: Marty Basurto Follow up Plan Follow up with: Nilsa Cordero [Primary Care Provider] - 08/05/23 3:30 pm Pattie Crowley APRN [Nurse Practitioner] - 09/09/23 10:15 am Felix Cosby MD [Physician] - 08/09/23 11:15 am Prescriptions/Medication Reconciliation: New paroxetine HCl 20 mg Tablet 20 mg PO DAILY 30 Days Qty: 30 0RF prednisone 20 mg tablet 60 mg PO DAILY 10 Days Qty: 30 0RF cefdinir 300 mg capsule 300 mg PO BID 3 Days Qty: 6 0RF Continued buprenorphine-naloxone 8-2 mg film 1 film sublingual BID Problem Reconciliation Problems Reviewed?: Yes Patient Discharge Instructions ACTIVITY: Continue current activity DIET: continue same diet Patient Instructions: DI for Pneumonia -- Adult, DI for Shortness of Breath, DI for Hypoxia Providers Primary Care Provider: Nilsa Cordero Admit Provider: Marty Basurto Attending Provider: Marty Basurto
--- NOTE | 2023-08-02 13:43 | XR_ITS ---
FINAL REPORT CLINICAL HISTORY: pneumonia COMPARISON: 07/31/2023 FINDINGS: A single portable view of the chest was obtained. The heart size and pulmonary vascularity are within normal limits. The mediastinum is within normal limits. Persistent but improved bilateral pulmonary opacities consistent with partially improved pneumonia. The bony thorax is intact. IMPRESSION: Partially improved bilateral pneumonia. Reviewed, Interpreted and Dictated by Wilmer Dickson III, MD Transcribed by Ana Howe Authenticated and [facility]
[2023-08-02 14:59] LABS: Anti-Centromere B Antibodies <0.2 AI (0.0-0.9); Antiscleroderma-70 Antibodies <0.2 AI (0.0-0.9)
[2023-08-03 12:51] LABS: Anti-Centromere B Abs Charge YES; Anti-Centromere B Antibodies <0.2; Antinuclear Antibodies (ANA) Negative; Antiscleroderma-70 Abs Charge YES; Antiscleroderma-70 Antibodies <0.2
--- NOTE | 2023-08-05 15:56 | SW/DCPLANNER ---
Follow up phone call w/ this patient: no answer at this time.
[2023-08-08 12:25] LABS: Fungitell(Beta D-Glucan) Serum SCANNED IMAGE
[2023-08-15 12:01] LABS: Alfentanil Negative; Fentanyl >100.00 ng/mL; Norfentanyl >2000.0 ng/mL; Norsufentanil Negative; Sufentanil Negative
[2023-08-15 12:02] LABS: Acetyl Fentanyl Negative; Acetyl Norfentanyl Negative
== END 2023-08-02 14:00 | disposition home or self-care (01) | DRG 193 ==
LOC: ER 20:12 → 2ND 21:44
PROVIDERS: Internal Medicine Pulmonary Disease; Nurse Practitioner Family; Admitting Provider Internal Medicine Adolescent Medicine; Emergency Provider Emergency Medicine; PCP Nurse Practitioner Family; Visit Provider Internal Medicine Adolescent Medicine
DX: J15.9 Unspecified bacterial pneumonia (principal); G92.8 Other toxic encephalopathy; J96.01 Acute respiratory failure with hypoxia; J84.9 Interstitial pulmonary disease, unspecified; M34.9 Systemic sclerosis, unspecified; E87.6 Hypokalemia
CPT/HCPCS: 71045; 80053; 80307; 80329; 80354; 81001; 82803; 83615; 83735; 85007; 85025; 86038; 86225; 86235; 87449; 87632; 87635; 99285; J0456; J0574; J0696; J2543; J3370

== ENCOUNTER 2023-08-22 22:28 | Emergency (ER) | payer BC, SELFPAY ==
[2023-08-22 22:29] VITALS: BP 133/75; PULSE 94; RESP 16; TEMP 36.8; O2SAT 95; BMI 30.7
--- NOTE | 2023-08-22 23:04 | ED_ITS ---
Discharge Plan Disposition Patient Disposition: Home, Self-Care Prescriptions Prescriptions: No Action buprenorphine-naloxone 8-2 mg film 1 film sublingual BID paroxetine HCl 20 mg Tablet 20 mg PO DAILY 30 Days Qty: 30 0RF prednisone 20 mg tablet 60 mg PO DAILY 10 Days Qty: 30 0RF cefdinir 300 mg capsule 300 mg PO BID 3 Days Qty: 6 0RF Referrals Follow up/Referrals: Nilsa Cordero [Primary Care Provider] - See instructions Activity Restrictions/Add. Instructions Additional Instructions/Restrictions: Please follow-up with your primary care provider. Please return to the emergency department if you develop any new or worsening symptoms or become concerned for your health. Please return to the hospital during business hours to have an ultrasound of your left leg performed. Clinical Impressions Clinical Impression: Localized swelling of left lower leg Discharge ED Provider: Torsten Cee Adult HPI General Chief complaint: Extremity Injury, Lower Stated complaint: LT leg , ankle swelling Time Seen by Provider: 08/22/23 23:03 Mode of Arrival: Ambulatory Source of Information: Patient Limitations: No Limitations Description of Symptoms (Recalled from ER Triage Doc. by RN): Pt states L leg/ankle is swollen. NKI Pt does have hx of Scleroderma History of Present Illness HPI narrative: 38-year-old male with history of scleroderma presents with acute on chronic left lower extremity swelling. He reports that he usually has swelling from his left knee down, but he noticed today that his left ankle is significantly more swollen than normal. He reports that he has chronic spider veins and they are stable from prior. He reports no recent trauma laceration infection etc. He does report recent hospitalization, was admitted for a couple of weeks within the last month for pneumonia. He does have history of drug abuse but denies any injection anytime recently. Related Data Home Medications Medication Instructions Recorded Confirmed buprenorphine 8 mg-naloxone 2 mg 1 film sublingual BID 07/30/23 07/31/23 sublingual film Previous Rx's Medication Instructions Recorded cefdinir 300 mg capsule 300 mg PO BID 3 days #6 caps 08/02/23 paroxetine HCl 20 mg tablet 20 mg PO DAILY 30 days #30 tabs 08/02/23 prednisone 20 mg tablet 60 mg (3 x 20 mg) PO DAILY 10 days 08/02/23 #30 tabs Allergies Allergy/AdvReac Type Severity Reaction Status Date / Time No Known Allergies Allergy Verified 07/30/23 16:03 PFSH PFSH Disclaimer: The information contained in this section may have been updated after the ravin ent was seen, as this information can be updated by other users. Medical History (Updated 08/22/23 @ 23:37 by Torsten Cee MD) Major depressive disorder ILD (interstitial lung disease) Scleroderma Social History (Updated 07/31/23 @ 21:35 by Padmini Ames RN) Smoking Status: Current every day smoker alcohol intake: former substance use type: marijuana, crack/cocaine and IV drugs current occupational status: unemployed Travel in the last 8 weeks: None household members: spouse ROS Obtained: Yes All systems reviewed & no additional complaints except as documented Physical Exam General General appearance: alert and in no apparent distress Head Head exam: atraumatic and normocephalic Eye Eye exam: Present normal appearance, PERRL and EOMI ENT ENT exam: Present normal oropharynx and normal external ear exam Neck Neck exam: Present normal inspection and full ROM Chest Chest inspection: Present normal inspection and symmetric chest wall rise; Absent tenderness Respiratory Respiratory exam: Present normal lung sounds bilaterally; Absent respiratory distress Cardiovascular Cardiovascular exam: Present regular rate and normal rhythm Abdominal Exam Abdominal exam: Present soft; Absent distention, tenderness or guarding Extremities Exam Extremities exam: Present other (Left lower extremity: Circumferential swelling and trace pitting edema from the knee down, no tenderness, no bruising, no erythema induration or evidence of infection. Normal neurovascular and muscular function.) Back Exam Back exam: Present normal inspection; Absent tenderness Neurological Exam Neurological exam: Present alert and oriented X3; Absent motor sensory deficit Psychiatric Psychiatric exam: Present normal affect and normal mood Skin Skin exam: Present warm, dry and normal color Lymphatic Lymphatic Findings: no adenopathy Medical Decision Making Medical Records Medical records reviewed: Yes I reviewed the patient's medical records. Christiano Inquiry Pt receiving controlled substance: No Christiano was queried for this patient: No Vital Signs: 08/22/23 22:29 08/22/23 23:43 Temperature 98.3 F 98.3 F Temperature Source Oral Oral Pulse Rate 84 Pulse Rate [Left] 94 H Respiratory Rate 16 16 Blood Pressure 129/81 Blood Pressure [Right Arm] 133/75 Blood Pressure Mean [Right Arm] 94 02 Sat by Pulse Oximetry 95 Oxygen Delivery Method Room Air Lab Data Lab results reviewed: Yes I reviewed the patient's lab results. Orders (Tests/Meds): ORDERS Category Date Time Status POCUS Point of Care (ER Only) Stat Exams 08/22/23 23:19 Taken Medical Decision Narrative: 38-year-old male with history of prior substance abuse, history of scleroderma, recent hospitalization presents with acute on chronic left lower extremity swelling. History was obtained interactive discussion with patient. On arrival, patient is [afebrile, hemodynamically stable, satting appropriately, alert, oriented x4, GCS 15], moving all extremities spontaneously. Full physical exam performed and significant for findings as above, mild swelling/trace pitting edema noted of the left lower extremity below the knee Differential includes but is not limited to acute DVT, chronic DVT, infection, fracture, dislocation, compartment syndrome. Overall, patient reports that the swelling is similar to prior but worse than normal. He has no history of DVT but is at increased risk due to recent hospitalization. A bedside ultrasound was performed by me which showed no evidence of DVT in the deep veins of the left lower extremity. Given he is high risk however, I think he will benefit from a formal Doppler ultrasound. An outpatient order was written and patient will return for formal ultrasound for further assessment. I discussed with him the risk benefit of anticoagulation while awaiting further testing, at this time I do not think it is indicated given he had a normal bedside ultrasound. I gave him instructions regarding return precautions including for chest pain shortness of breath etc. Procedures Risk/Benefits of Procedure(s) Were Explained: Yes Limited Ultrasound Indication:: Limited DVT ultrasound Indication: Limited compression ultrasonography of the left lower extremity was performed to evaluate for non-compressibility of the deep veins in the patient. The ultrasound was performed with the following indications, as noted in the H&P: Left leg swelling Identified structures: Left [common femoral vein, femoral vein, popliteal vein were examined.] Findings: Lower Extremity: Left CFV: Good compressibility Left FV good compressibility Left Popliteal vein: Good compressibility Impression: Normal left lower extremity limited DVT ultrasound This study was performed by me, and I personally interpreted all images/videos. Images were saved to permanent archive The study was technically adequate [id number] Critical Care Critical Care Time Critical Care Time: No
[2023-08-22 23:43] VITALS: BP 129/81; PULSE 84; RESP 16; TEMP 36.8; O2SAT 97
== END 2023-08-22 23:44 | disposition home or self-care (01) ==
PROVIDERS: Emergency Provider Emergency Medicine; PCP Nurse Practitioner Family
DX: R22.42 Localized swelling, mass and lump, left lower limb (principal); F17.210 Nicotine dependence, cigarettes, uncomplicated; M34.9 Systemic sclerosis, unspecified; J84.9 Interstitial pulmonary disease, unspecified
CPT/HCPCS: 99284

== ENCOUNTER 2023-08-29 21:45 | Emergency (ER) | payer BC, SELFPAY ==
[2023-08-29 21:46] VITALS: BP 152/84; PULSE 70; RESP 16; TEMP 37; O2SAT 98; BMI 30.7
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
[2023-08-29] MEDS: TET/DIPHTH/PERT-ADULT 0.5ML SYRINGE 0.5 ML IM (23:03)
[2023-08-29] MEDS: cephALEXin 500MG CAPSULE 500 MG PO (23:04)
[2023-08-29 23:17] VITALS: BP 139/74; PULSE 61; RESP 15; TEMP 36.8; O2SAT 99
== END 2023-08-29 23:18 | disposition home or self-care (01) ==
PROVIDERS: Emergency Provider Student in an Organized Health Care Education/Training Program; PCP Nurse Practitioner
DX: S61.432A Puncture wound without foreign body of left hand, initial encounter (principal); J84.9 Interstitial pulmonary disease, unspecified; F17.210 Nicotine dependence, cigarettes, uncomplicated; M34.9 Systemic sclerosis, unspecified; W45.8XXA Other foreign body or object entering through skin, initial encounter; Z23 Encounter for immunization
CPT/HCPCS: 90471; 90715; 99283